=== PATIENT | female | born 1995 | race Hispanic/Latino ===

== ENCOUNTER 2022-07-09 16:13 | Emergency (ER) | payer OTHER ==
--- OUTSIDE RECORDS SUMMARY | 2022-07-09 16:20 | XMS REPORT | Continuity of Care Document ---
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 depressed, nightly moderate for mood prazosin 2021-03- No PTSD 1mg Take 1 Spencer (MINIPRESS) 04-08 (post-traum capsule by [facility] 1 mg 00:00: 00:00 atic stress mouth at capsule 00 :00 disorder) bedtime nightly for trauma nightmares hydrOXYzine 2021-03- No PTSD 50mg Take 1 Marquez ris (ATARAX) 50 04-08 (post-traum tablet by [facility] mg tablet 00:00: 00:00 atic stress mouth 3 00 :00 disorder) times daily as needed for Anxiety sertraline 2021-03- No Bipolar I 200mg Take 2 [facility] (ZOLOFT) 04-08 disorder, tablets by [facility] 100 mg 00:00: 00:00 most recent mouth tablet 00 :00 episode every depressed, morning moderate for depression and anxiety QUEtiapine 2021-03 No Bipolar I 100mg Take 1 [facility] (SEROQUEL) 04-08 disorder, tablet by [facility] 100 mg 00:00: 00:00 most recent mouth at tablet 00 :00 episode bedtime depressed, nightly moderate for mood prazosin 2021-03 No PTSD 1mg Take 1 Spencer (MINIPRESS) 04-08 (post-traum capsule by [facility] 1 mg 00:00: 00:00 atic stress mouth at capsule 00 :00 disorder) bedtime nightly for trauma nightmares hydrOXYzine 2021-03 PTSD 50mg Take 1 Marquez ris (ATARAX) 50 04-08 (post-traum tablet by [facility] mg tablet 00:00: 00:00 atic stress mouth 3 00 :00 disorder) times daily as needed for Anxiety sertraline 2021-03 Bipolar I 200mg Take 2 [facility] (ZOLOFT) 04-08 disorder, tablets by [facility] 100 mg 00:00: 00:00 most recent mouth tablet 00 :00 episode every depressed, morning moderate for depression and anxiety QUEtiapine 2021-03 No Bipolar I 100mg Take 1 [facility] (SEROQUEL) 04-08 disorder, tablet by [facility] 100 mg 00:00: 00:00 most recent mouth at tablet 00 :00 episode bedtime depressed, nightly moderate for mood prazosin 2021-03 PTSD 1mg Take 1 Spencer (MINIPRESS) 04-08 (post-traum capsule by [facility] 1 mg 00:00: 00:00 atic stress mouth at capsule 00 :00 disorder) bedtime nightly for trauma nightmares prazosin 2021-03- No 1mg Take 1 mg Marquez ris (MINIPRESS) 03-20 by mouth [facility] 1 mg 00:00: 00:00 at bedtime capsule 00 :00 nightly QUEtiapine 2021-03 No 100mg Take 100 H arris (SEROQUEL) 03-20 mg by [facility] 100 mg 00:00: 00:00 mouth at tablet 00 :00 bedtime nightly sertraline 2021-03- No 50mg Q.5D Take 50 mg Spencer (ZOLOFT) 50 03-20 by mouth 2 [facility] mg tablet 00:00: 00:00 (two) 00 :00 times a day prazosin 2021-03- No 1mg Take 1 mg Marquez ris (MINIPRESS) 03-20 by mouth [facility] 1 mg 00:00: 00:00 at bedtime capsule 00 :00 nightly QUEtiapine 2021-03- No 100mg Take 100 H arris (SEROQUEL) 03-20 mg by [facility] 100 mg 00:00: 00:00 mouth at tablet 00 :00 bedtime nightly sertraline 2021-03- No 50mg Q.5D Take 50 mg [facility] (ZOLOFT) 50 03-20 by mouth 2 [facility] mg tablet 00:00: 00:00 (two) 00 :00 times a day prazosin 2021-03- No 1mg Take 1 mg Marquez ris (MINIPRESS) 03-20 by mouth [facility] 1 mg 00:00: 00:00 at bedtime capsule 00 :00 nightly QUEtiapine 2021-03- No 100mg Take 100 H arris (SEROQUEL) 03-20 mg by [facility] 100 mg 00:00: 00:00 mouth at tablet 00 :00 bedtime nightly sertraline 2021-03- No 50mg Q.5D Take 50 mg [facility] (ZOLOFT) 50 03-20 by mouth 2 [facility] mg tablet 00:00: 00:00 (two) 00 :00 times a day sertraline 2021-03- No 150mg QD Take 150 H arris HCl (ZOLOFT -04 11-04 mg by Health OR) 00:25: 00:00 mouth 38 :00 daily sertraline 2021-03- No 150mg QD Take 150 H arris HCl (ZOLOFT -04 11-04 mg by Health OR) 00:25: 00:00 mouth 38 :00 daily gabapentin 2021- No Depression, 300mg Take 1 Spencer (NEURONTIN) 09-16 controlled capsule by [employer] 300 mg 00:00: 23:59 mouth 3 capsule 00 :00 times daily for 30 days traZODone 2021-2021- No Depression, 100mg Take 1 Spencer (DESYREL) 09-16 controlled tablet by [employer] 100 mg 00:00: 23:59 mouth at tablet 00 :00 bedtime nightly for 30 days sertraline 2021-2021- No Moderate 100mg QD Take 1 Spencer (ZOLOFT) 09-16 episode of tablet by [employer] 100 mg 00:00: 23:59 recurrent mouth tablet 00 :00 major daily for depressive 30 days disorder hydrOXYzine 2021-2021- No Moderate 25mg Take 1 Spencer (ATARAX) 25 09-16 episode of tablet by [facility] mg tablet 00:00: 23:59 recurrent mouth 3 00 :00 major times depressive daily as disorder needed for up to 30 days for Anxiety gabapentin 2021-2021- No Depression, 300mg Take 1 Spencer (NEURONTIN) 09-16 controlled capsule by [employer] 300 mg 00:00: 23:59 mouth 3 capsule 00 :00 times daily for 30 days traZODone 2021-2021- No Depression, 100mg Take 1 Spencer (DESYREL) 09-16 controlled tablet by [employer] 100 mg 00:00: 23:59 mouth at tablet 00 :00 bedtime nightly for 30 days sertraline 2021-2021- No Moderate 100mg QD Take 1 Spencer (ZOLOFT) 09-16 episode of tablet by [employer] 100 mg 00:00: 23:59 recurrent mouth tablet 00 :00 major daily for depressive 30 days disorder hydrOXYzine 2021-2021- No Moderate 25mg Take 1 [facility] (ATARAX) 25 09-16 episode of tablet by [facility] mg tablet 00:00: 23:59 recurrent mouth 3 00 :00 major times depressive daily as disorder needed for up to 30 days for Anxiety gabapentin 2021-2021- No Depression, 300mg Take 1 Spencer (NEURONTIN) 09-16 controlled capsule by [employer] 300 mg 00:00: 23:59 mouth 3 capsule 00 :00 times daily for 30 days traZODone 2021-0 2021- No Depression, 100mg Take 1 [facility] (DESYREL) 09-16 controlled tablet by [facility] 100 mg 00:00: 23:59 mouth at tablet 00 :00 bedtime nightly for 30 days sertraline 2021- No Moderate 100mg QD Take 1 Spencer (ZOLOFT) 09-16 episode of tablet by [facility] 100 mg 00:00: 23:59 recurrent mouth tablet 00 :00 major daily for depressive 30 days disorder hydrOXYzine 2021- No Moderate 25mg Take 1 Spencer (ATARAX) 25 09-16 episode of tablet by [facility] mg tablet 00:00: 23:59 recurrent mouth 3 00 :00 major times depressive daily as disorder needed for up to 30 days for Anxiety gabapentin 2021- No Depression, 300mg Take 1 Spencer (NEURONTIN) 09-16 controlled capsule by [facility] 300 mg 00:00: 23:59 mouth 3 capsule 00 :00 times daily for 30 days traZODone 2021- No Depression, 100mg Take 1 Spencer (DESYREL) 09-16 controlled tablet by [facility] 100 mg 00:00: 23:59 mouth at tablet 00 :00 bedtime nightly for 30 days sertraline 2021-2021- No Moderate 100mg QD Take 1 Spencer (ZOLOFT) 09-16 episode of tablet by [facility] 100 mg 00:00: 23:59 recurrent mouth tablet 00 :00 major daily for depressive 30 days disorder hydrOXYzine 2021- No Moderate 25mg Take 1 Spencer (ATARAX) 25 09-16 episode of tablet by [facility] mg tablet 00:00: 23:59 recurrent mouth 3 00 :00 major times depressive daily as disorder needed for up to 30 days for Anxiety NS (Bolus) No 1,000 mL, Me moria IV 5-18 1,000 l 05:31: ml/hr, Gavin 00 Infuse Over: 1 hr, Route: IV, 1,000, Drug form: INJ, ONCE, Priority: STAT, Dosing Weight 40 kg, Start date: 07/27/21 0:31:00 CDT, Stop date: 07/27/21 0:31:00 CDT, 0 NS (Bolus) No 1,000 mL, Me moria IV 5-18 1,000 l 05:31: ml/hr, [facility] 00 Infuse Over: 1 hr, Route: IV, 1,000, Drug form: INJ, ONCE, Priority: STAT, Dosing Weight 40 kg, Start date: 07/27/21 0:31:00 CDT, Stop date: 07/27/21 0:31:00 CDT, 0 NS (Bolus) No 1,000 mL, Me moria IV 5-18 1,000 l 05:31: ml/hr, [place] 00 Infuse Over: 1 hr, Route: IV, 1,000, Drug form: INJ, ONCE, Priority: STAT, Dosing Weight 40 kg, Start date: 07/27/21 0:31:00 CDT, Stop date: 07/27/21 0:31:00 CDT, 0 NS (Bolus) No 1,000 mL, Me moria IV 5-18 1,000 l 05:31: ml/hr, [place] 00 Infuse Over: 1 hr, Route: IV, 1,000, Drug form: INJ, ONCE, Priority: STAT, Dosing Weight 40 kg, Start date: 07/27/21 0:31:00 CDT, Stop date: 07/27/21 0:31:00 CDT, 0 NS (Bolus) No 1,000 mL, Me moria IV 5-18 1,000 l 05:31: ml/hr, [facility] 00 Infuse Over: 1 hr, Route: IV, 1,000, Drug form: INJ, ONCE, Priority: STAT, Dosing Weight 40 kg, Start date: 07/27/21 0:31:00 CDT, Stop date: 07/27/21 0:31:00 CDT, 0 ibuprofen Yes 800 mg = 1 Me moria 800 mg oral 4-07 tab, PO, l tablet 00:51: Q8H, PRN [place] 00 Pain, Take with food, X 7 day, # 20 tab, 0 Refill(s) Tylenol Yes 1,000 mg = Fili brandy Extra 4-07 2 tab, PO, l Strength 00:51: Q6H, PRN Fabiola nn 500 mg oral 00 Pain, not tablet to exceed 4000 mg/day, X 10 day, # 80 tab, 0 Refill(s) ibuprofen 0 Yes 800 mg = 1 Me moria 800 mg oral 4-07 tab, PO, l tablet 00:51: Q8H, PRN [place] 00 Pain, Take with food, X 7 day, # 20 tab, 0 Refill(s) Tylenol 0 Yes 1,000 mg = Fili brandy Extra 4-07 2 tab, PO, l Strength 00:51: Q6H, PRN Fabiola nn 500 mg oral 00 Pain, not tablet to exceed 4000 mg/day, X 10 day, # 80 tab, 0 Refill(s) ibuprofen 0 Yes 800 mg = 1 Me moria 800 mg oral 4-07 tab, PO, l tablet 00:51: Q8H, PRN [place] 00 Pain, Take with food, X 7 day, # 20 tab, 0 Refill(s) Tylenol 0 Yes 1,000 mg = Fili brandy Extra 4-07 2 tab, PO, l Strength 00:51: Q6H, PRN Fabiola nn 500 mg oral 00 Pain, not tablet to exceed 4000 mg/day, X 10 day, # 80 tab, 0 Refill(s) ibuprofen 0 Yes 800 mg = 1 Me moria 800 mg oral 4-07 tab, PO, l tablet 00:51: Q8H, PRN [place] 00 Pain, Take with food, X 7 day, # 20 tab, 0 Refill(s) Tylenol 0 Yes 1,000 mg = Fili brandy Extra 4-07 2 tab, PO, l Strength 00:51: Q6H, PRN [place] nn 500 mg oral 00 Pain, not tablet to exceed 4000 mg/day, X 10 day, # 80 tab, 0 Refill(s) ibuprofen 0 Yes 800 mg = 1 Me moria 800 mg oral 4-07 tab, PO, l tablet 00:51: Q8H, PRN [place] 00 Pain, Take with food, X 7 day, # 20 tab, 0 Refill(s) Tylenol 2021-0 Yes 1,000 mg = Fili brandy Extra 4-07 2 tab, PO, l Strength 00:51: Q6H, PRN [place] nn 500 mg oral 00 Pain, not tablet to exceed 4000 mg/day, X 10 day, # 80 tab, 0 Refill(s) gabapentin 2021- No Depression, 300mg Take 1 Spencer (NEURONTIN) 11-05 controlled capsule by [facility] 300 mg 00:00: 00:00 mouth 3 capsule 00 :00 times daily. sertraline 2021- No Depression, 50mg QD Take 1 Spencer (ZOLOFT) 50 11-05 controlled tablet by [facility] mg tablet 00:00: 00:00 mouth 00 :00 daily. traZODone 2021- No Depression, 100mg Take 1 [facility] (DESYREL) 11-05 controlled tablet by [facility] 100 mg 00:00: 00:00 mouth at tablet 00 :00 bedtime nightly. gabapentin 2021- No Depression, 300mg Take 1 [facility] (NEURONTIN) 11-05 controlled capsule by [facility] 300 mg 00:00: 00:00 mouth 3 capsule 00 :00 times daily. sertraline 2021- No Depression, 50mg QD Take 1 Spencer (ZOLOFT) 50 11-05 controlled tablet by [facility] mg tablet 00:00: 00:00 mouth 00 :00 daily. traZODone 2021- No Depression, 100mg Take 1 Spencer (DESYREL) 11-05 controlled tablet by [facility] 100 mg 00:00: 00:00 mouth at tablet 00 :00 bedtime nightly. gabapentin 2021- No Depression, 300mg Take 1 Spencer (NEURONTIN) 11-05 controlled capsule by [facility] 300 mg 00:00: 00:00 mouth 3 capsule 00 :00 times daily. sertraline 2021- No Depression, 50mg QD Take 1 Spencer (ZOLOFT) 50 11-05 controlled tablet by [facility] mg tablet 00:00: 00:00 mouth 00 :00 daily. traZODone 2021- No Depression, 100mg Take 1 Spencer (DESYREL) 11-05 controlled tablet by [employer] 100 mg 00:00: 00:00 mouth at tablet 00 :00 bedtime nightly. gabapentin 2021- No Depression, 300mg Take 1 Spencer (NEURONTIN) 11-05 controlled capsule by [facility] 300 mg 00:00: 00:00 mouth 3 capsule 00 :00 times daily. sertraline 2021- No Depression, 50mg QD Take 1 Spencer (ZOLOFT) 50 11-05 controlled tablet by [employer] mg tablet 00:00: 00:00 mouth 00 :00 daily. traZODone 2021- No Depression, 100mg Take 1 Spencer (DESYREL) 11-05 controlled tablet by [employer] 100 mg 00:00: 00:00 mouth at tablet 00 :00 bedtime nightly. Mupirocin Yes 1 appl, [facility] 0.02 MG/MG 6-28 TOP, BID, l Topical 19:35: Apply to Evaristo n Ointment 00 affected [Bactroban] area(s), X 7 day, # 22 gm, 0 Refill(s) Mupirocin 0 Yes 1 appl, Memor ia 0.02 MG/MG 6-28 TOP, BID, l Topical 19:35: Apply to Evaristo n Ointment 00 affected [Bactroban] area(s), X 7 day, # 22 gm, 0 Refill(s) Mupirocin 0 Yes 1 appl, Memor ia 0.02 MG/MG 6-28 TOP, BID, l Topical 19:35: Apply to Evaristo n Ointment 00 affected [Bactroban] area(s), X 7 day, # 22 gm, 0 Refill(s) Mupirocin Yes 1 appl, Memor ia 0.02 MG/MG 6-28 TOP, BID, l Topical 19:35: Apply to Evaristo n Ointment 00 affected [Bactroban] area(s), X 7 day, # 22 gm, 0 Refill(s) Mupirocin 0 Yes 1 appl, Memor ia 0.02 MG/MG 6-28 TOP, BID, l Topical 19:35: Apply to Evaristo n Ointment 00 affected [Bactroban] area(s), X 7 day, # 22 gm, 0 Refill(s) Immunizations Ordered Immunization Filled Immunization Date Status Commen ts Source Name Name AGE 8 MOS+ INFLUENZA 2022-03-17 Completed [facility] VACCINE <AFLURIA, 00:00:00 FLUZONE, FLULAVAL, FLUARIX> PREFILLED SYRINGE, QUADD AGE 8 MOS+ INFLUENZA 2022-03-17 Completed [facility] VACCINE <AFLURIA, 00:00:00 FLUZONE, FLULAVAL, FLUARIX> PREFILLED SYRINGE, QUADD AGE 8 MOS+ INFLUENZA 2022-03-17 Completed [facility] VACCINE <AFLURIA, 00:00:00 FLUZONE, FLULAVAL, FLUARIX> PREFILLED SYRINGE, QUADD Vital Signs Vital Name Observation Time Observation Value Comments Source Systolic blood 2022-05-25 22:51:00 103 mm[Hg] [facility] pressure Diastolic blood 2022-05-25 22:51:00 72 mm[Hg] [facility] pressure Heart rate 2022-05-25 22:51:00 97 /min [facility] Body temperature 2022-05-25 22:51:00 36.89 [facility] Respiratory rate 2022-05-25 22:51:00 18 /min [facility] Oxygen saturation in 2022-05-25 22:51:00 100 /min [facility] Arterial blood by Pulse oximetry Body height 2022-05-25 14:43:00 157.5 cm [facility] Body weight 2022-05-25 14:43:00 50.1 kg [facility] BMI 2022-05-25 14:43:00 20.20 kg/m2 [facility] Body temperature 2022-03-17 11:59:00 36.28 [facility] Body temperature 2022-03-17 11:59:00 36.28 [facility] Body temperature 2022-03-17 11:59:00 36.28 [facility] Body temperature 2022-03-17 11:59:00 36.28 [facility] Systolic blood 2022-05-31 16:00:00 112 mm[Hg] [facility] pressure Diastolic blood 2022-05-31 16:00:00 77 mm[Hg] [facility] pressure Heart rate 2022-05-31 16:00:00 86 /min [facility] Body temperature 2022-05-31 16:00:00 37.67 [facility] Respiratory rate 2022-05-31 16:00:00 18 /min [facility] Oxygen saturation in 2022-05-31 16:00:00 100 /min [facility] Arterial blood by Pulse oximetry Body height 2022-05-26 02:47:00 157.5 cm [facility] Body weight 2022-05-26 02:47:00 52.073 kg [facility] BMI 2022-05-26 02:47:00 21.00 kg/m2 [facility] Body temperature 2022-03-17 11:59:00 36.28 [facility] Systolic blood 2022-03-14 10:31:00 117 mm[Hg] [facility] pressure Diastolic blood 2022-03-14 10:31:00 84 mm[Hg] [facility] pressure Heart rate 2022-03-14 10:31:00 82 /min [facility] Respiratory rate 2022-03-14 10:31:00 17 /min [facility] Body height 2022-03-14 10:31:00 157.5 cm [facility] Body weight 2022-03-14 10:31:00 55.792 kg [facility] BMI 2022-03-14 10:31:00 22.50 kg/m2 [facility] Oxygen saturation in 2022-02-06 09:02:00 99 /min [facility] Arterial blood by Pulse oximetry Systolic blood 2021-09-16 11:40:00 99 mm[Hg] [facility] pressure Diastolic blood 2021-09-16 11:40:00 62 mm[Hg] [facility] pressure Heart rate 2021-09-16 11:40:00 76 /min [facility] Body temperature 2021-09-16 11:40:00 36.28 [facility] Respiratory rate 2021-09-16 11:40:00 18 /min [facility] Body height 2021-09-16 11:40:00 157.5 cm [facility] Body weight 2021-09-16 11:40:00 58.514 kg [facility] BMI 2021-09-16 11:40:00 23.59 kg/m2 [facility] Oxygen saturation in 2021-09-16 11:40:00 99 /min [facility] Arterial blood by Pulse oximetry Systolic (mm Hg) 2021-07-27 06:18:00 Fili rial [place] Diastolic (mm Hg) 2021-07-27 06:18:00 Mem orial [place] Heart Rate 2021-07-27 06:13:00 [facility] Respitory Rate 2021-07-27 06:13:00 [facility] Systolic (mm Hg) 2021-07-27 06:13:00 Fili rial [place] Diastolic (mm Hg) 2021-07-27 06:13:00 Mem [facility] Temperature Oral (F) 2021-07-27 05:25:00 97.9 F [facility] [place] Heart Rate 2021-07-27 05:25:00 [facility] Respitory Rate 2021-07-27 05:25:00 Memori al [place] Systolic (mm Hg) 2021-07-27 05:25:00 Fili rial [facility] Diastolic (mm Hg) 2021-07-27 05:25:00 Mem orial [place] Respitory Rate 2021-07-27 03:10:00 Memori al [place] Weight 2021-07-27 02:52:00 [facility] [place] Heart Rate 2021-07-27 02:52:00 [facility] [place] Temperature Oral (F) 2021-07-27 02:52:00 98.5 F [facility] Temperature Oral (F) 2021-06-16 02:15:00 98.1 F [facility] Heart Rate 2021-06-16 02:15:00 [facility] [place] Respitory Rate 2021-06-16 02:15:00 Memori al [place] Systolic (mm Hg) 2021-06-16 02:15:00 Fili rial [place] Diastolic (mm Hg) 2021-06-16 02:15:00 Mem orial [place] Heart Rate 2021-06-15 22:57:00 [facility] [place] Respitory Rate 2021-06-15 22:57:00 Memori al [place] Systolic (mm Hg) 2021-06-15 22:57:00 Fili rial [place] Diastolic (mm Hg) 2021-06-15 22:57:00 Mem orial [place] Temperature Oral (F) 2021-06-15 22:45:00 99.5 F [facility] [place] Systolic (mm Hg) 2021-06-15 22:45:00 Fili rial [place] Diastolic (mm Hg) 2021-06-15 22:45:00 Mem orial [place] Heart Rate 2021-06-15 22:45:00 [facility] [place] Respitory Rate 2021-06-15 22:45:00 [facility] [place] Temperature Oral (F) 2020-09-06 19:55:00 98.1 F [facility] Heart Rate 2020-09-06 19:55:00 [facility] [place] Respitory Rate 2020-09-06 19:55:00 [facility] [place] Systolic (mm Hg) 2020-09-06 19:55:00 Fili rial [place] Diastolic (mm Hg) 2020-09-06 19:55:00 Mem orial [place] Systolic (mm Hg) 2020-09-06 17:24:00 Fili rial [place] Diastolic (mm Hg) 2020-09-06 17:24:00 Mem orial [place] Heart Rate 2020-09-06 17:24:00 [facility] [place] Respitory Rate 2020-09-06 17:24:00 Memori al [place] Temperature Oral (F) 2020-09-06 17:24:00 98.6 F [facility] [place] Procedures Procedure Date / Time Performed Performing Clinician Sourc e POC COVID-19 2022-05-26 02:00:00 [facility] 2022-05-25 21:09:00 Nelia Paul [facility] TEST 2022-05-25 21:09:00 Nelia Paul [facility]th URINALYSIS 2022-05-25 21:09:00 Nelia Paul [facility]th TEST 2022-05-25 21:09:00 Nelia Paul [facility]th URINALYSIS 2022-05-25 21:09:00 Nelia Paul [facility]th URINALYSIS 2022-05-25 21:09:00 Nelia Paul alth CBC/DIFF 2022-05-25 20:09:00 Nelia Paul alth BASIC METABOLIC PANEL 2022-05-25 20:09:00 Nelia Paul [facility] LIVER PROFILE 2022-05-25 20:09:00 Nelia Paul alth LIPASE 2022-05-25 20:09:00 Nelia Paul alth CBC 2022-05-25 20:09:00 Nelia Paul alth BASIC METABOLIC PANEL 2022-05-25 20:09:00 Nelia Paul [facility] CBC/DIFF 2022-05-25 20:09:00 Nelia Paul alth LIPASE 2022-05-25 20:09:00 Nelia Paul alth LIVER PROFILE 2022-05-25 20:09:00 Nelia Paul alth CBC 2022-05-25 20:09:00 Nelia Paul alth U/S ABDOMEN LIMITED 2022-05-25 18:48:15 Humberto Trini [facility] Health U/S ABDOMEN LIMITED 2022-05-25 18:48:15 Humberto Trini [facility] XRAY CHEST 2 VIEWS 2022-05-25 18:25:[address] [facility] XRAY CHEST 2 VIEWS 2022-05-25 18:25:[address] [facility] 12 LEAD EKG 2022-05-25 18:09:23 Nelia Paul alth 12 LEAD EKG 2022-05-25 18:09:23 Humberto Nelia Polk [facility] CBC WITH 2022-03-14 10:30[facility]PLATELET COMPREHENSIVE METABOLIC 2022-03-14 10:30:00 [facility] PANEL(14) HEMOGLOBIN A1C 2022-03-14 10:30:00 [facility] LIPID PANEL 2022-03-14 10:30:00 [facility] THYROID II PROFILE (TU, 2022-03-14 10:30:00 [facility] T4, T7, TSH) DRUG ABUSE SCREEN 11 2022-02-06 10:08:00 [facility] W/ETOH, NO CONF TEST, URINE 2022-02-06 10:08:00 [facility] POC COVID-19 2022-01-13 00:32:00 [facility] 2021-[facility]-15 00:00:00 [facility] DR[facility] S[facility]EN POC URINE 2021-03-15 00:00:[address] [facility] POC COVID-19 2021-03-14 00:00:00 Arnulfo Stanley [facility] Plan of Care Planned Activity Planned Date Details Comments Source Future Scheduled Test 2021-12-[address] [facility] 00:00:00 (>/= 19 yrs) [code = IMM Influenza Seasonal (>/= 19 yrs)] Future Scheduled Test [address] [facility] 00:00:00 neoplasm of cervix (procedure) [code = 269441871] Future Scheduled Test [address] [facility] 00:00:00 neoplasm of cervix (procedure) [code = 541748763] Future Scheduled Test [address] [facility] 00:00:00 neoplasm of cervix (procedure) [code = 898918679] Future Scheduled Test [address] [facility] 00:00:00 neoplasm of cervix (procedure) [code = 212745788] Future Scheduled Test 2003 Imm Pneumococcal 0-64 [facility] 00:00:00 (1 - PCV) [code = Imm Pneumococcal 0-64 (1 - PCV)] Future Scheduled Test [address]neum[address] 0-64 [facility] 00:00:00 (1 - PCV) [code = Imm Pneumococcal 0-64 (1 - PCV)] Future Scheduled Test [address]neumococcal 0-64 [facility] 00:00:00 (1 - PCV) [code = Imm Pneumococcal 0-64 (1 - PCV)] Future Scheduled Test [address]neum[address] 0-64 [facility] 00:00:00 (1 - PCV) [code = Imm Pneumococcal 0-64 (1 - PCV)] Future Scheduled Test 1997 COVID-19 Vaccine (#1) [facility] 00:00:00 [code = COVID-19 Vaccine (#1)] Future Scheduled Test 1997 COVID-19 Vaccine (#1) [facility] 00:00:00 [code = COVID-19 Vaccine (#1)] Future Scheduled Test 1997 COVID-19 Vaccine (#1) [facility] 00:00:00 [code = COVID-19 Vaccine (#1)] Future Scheduled Test 1997 COVID-19 Vaccine (#1) [facility] 00:00:00 [code = COVID-19 Vaccine (#1)] Future Scheduled Test 1997 Fluoride Varnish [code [facility] 00:00:00 = Fluoride Varnish] Encounters Start End Encounter Admission Attending Care Care Encounter Source Date/Time Date/Time Type Type Clinicians Facility Department ID 2022-05-25 Outpatient [facility] [id number] [place] 17:56:57 [id number] [facility] 2021-09-20 Outpatient [facility] [id number] [place] 08:13:09 [id number] [facility] 2021-06-17 Outpatient [facility] [id number] [place] 13:07:55 [id number] [facility] 2022-06-28 2022-06-28 Outpatient [facility] SFA Johnathan 09:46:40 09:46:40 [id number] [place] 2022-06-02 2022-06-02 Outpatient S[facility] Johnathan 11:00:12 11:00:12 [id number] F [place] 2022-05-25 2022-05-26 Inpatient [facility] [id number] [place] 13:53:00 09:23:00 [facility] 2022-05-25 2022-05-26 Emergency FERNANDO Paul [id number] [place] 15:49:00 00:36:00 Nelia MARROQUIN [id number] [facility] .[id number] 9787-03-16 2022-05-25 Emergency [facility] [id number] [place] 18:24:23 18:48:17 [facility] 2022-05-25 2022-05-25 Emergency [facility] [id number] [place] 18:14:52 18:25:25 [facility] 2022-03-17 2022-03-17 Office SEAMUS Hogan [id number] [facility] T[place] 11:15:00 12:13:31 Visit Juany MUÑOZ [id number] Oleksandr [facility] .2.7.2.6869 - [id number] [facility] 2022-03-17 2022-03-17 Office SEAMUS Hogan [id number] [place] 11:15:00 12:13:31 Visit Juany MUÑOZ 350.1.13.43 tabby INGALLS .2.7.2.6869 - [id number] [facility] 4 2022-01-13 2022-01-19 [facility]patient [facility] [id number] [place] 11:00:00 13:00:00 [facility] 2022-01-12 2022-01-12 Outpatient NICHOLAS, [facility] [id number] [place] 20:27:59 23:59:00 DORETHA mcnair 2021-09-16 2021-09-16 Outpatient MAK, [facility] [id number] [place] 10:30:22 23:59:00 [facility] 2021-07-27 2021-07-27 [facility] [id number] Mem[facility] 02:42:18 06:47:00 r Gavin 03 [facility] 2021-07-27 2021-07-27 Emergency nullFlavo [facility] [id number] [id number] [place] 02:42:18 06:47:00 r Gavin 03 [facility] 2021-07-26 2021-07-27 Outpatient Fouche, [facility] [id number] 21:42:18 01:47:00 Alejandra Tracey [facility] 2021-07-26 2021-07-27 Outpatient Fouche, [facility] [id number] 21:42:18 01:47:00 Alejandra Tracey [facility] 2021-07-26 2021-07-27 Emergency E FOUCHE, [facility] [id number] [facility] 21:42:00 01:47:00 ALEJANDRA 2021-06-15 2021-06-16 Emergency nullFlavo [facility] [id number] [id number] [place] 22:28:00 02:18:00 r Gavin 02 [facility] 2021-06-15 2021-06-16 Emergency nullFlavo [facility] [id number] [id number] [place] 22:28:00 02:18:00 r Gavin 02 [facility] 2021-06-15 2021-06-15 Emergency E NDUM, [facility] [id number] [facility] 17:28:00 21:18:00 XAVI 2021-06-15 2021-06-15 Outpatient Ndum, [facility] [id number] 17:28:00 21:18:00 Xavi 02 Nathanael 2021-03-15 2021-03-23 Inpatient ABID, [facility] [id number] [place] 08:08:00 13:00:00 RADHA [facility] 2021-03-14 2021-03-14 Outpatient LISA, [facility] [id number] [place] 22:45:23 23:59:00 LUTHER [facility] 2021-01-01 2021-01-01 Orders Dioni, [facility] [id number] [place] 00:00:00 00:00:00 [facility] 2020-12-02 2020-12-02 Out[facility] SMALLS[facility] [id number] [place] 00:00:00 [facility]00[facility] 2020-11-11 2020-11-11 [facility] [id number] [place] 00:00:00 00:00:00 [facility] 2020-11-05 2020-11-06 [facility] [id number] [place] 21:24:00 01:26:00 [facility] 2020-11-05 2020-11-05 Outpatient KOLBY JUDD [facility] [id number] [place] 18:48:02 21:23:00 [facility] 2020-09-06 2020-09-06 [facility] [id number] [place] 17:07:27 19:58:00 r Gavin [address] [place] [address] 2020-09-06 2020-09-06 Emergency nullFlavo [facility] [id number] [place] 17:07:27 19:58:00 r Gavin 01 [facility] 2020-09-06 2020-09-06 Outpatient Hilton Lima [facility] [id number] 12:07:27 14:58:00 Sumanth 01 Results Test Description Test Time Test Comments Results Result Sourc e Comments 12 Lead EKG 2022-05-10 12 LEAD EKG FOR CHP Fernando [place] 6 [facility] 18:09:23 Test Date: [id number] Name: NANETTE KIRBY Department: 5520Patient ID: [id number] Room: [place] [address]Gender: F Dye Mixer: [id number]: 1995 Requested By: NELIA Dow Number: [id number] Reading MD: Lo Hernández MeasurementsIntervals [place] Rate: 72 P: 68PR: 128 QRS: 72QRSD: 83 T: 65QT: 381 QTc: 405 Interpretive StatementsSINUS RHYTHMElectronically Signed On 05-26-2022 12:18:12 CDT by Lo Sanchez 12 Lead EKG 2022-05-10 12 LEAD EKG FOR CHP Fernando [place] 6 [facility] 18:09:23 Test Date: [id number] Name: NANETTE KIRBY Department: 5520Patient ID: [id number] Room: [place] [address]Gender: F Dye Mixer: [id number]: 1995 Requested By: NELIA Dow Number: [id number] Reading MD: Lo Hernández MeasurementsIntervals [place] Rate: 72 P: 68PR: 128 QRS: 72QRSD: 83 T: 65QT: 381 QTc: 405 Interpretive StatementsSINUS RHYTHMElectronically Signed On 05-26-2022 12:18:12 CDT by Lo Sanchez CHEM PANEL 2021-07-27 04:05:00 Test Item Value Reference Range Interpretation Comme nts A/G Ratio (test code = A/G Ratio) 0.8 1 0.7-1.6 Cash4GoldCHEM [id number] 04:05:00 Test Item Value Reference Range Interpretation Comments eGFR (test code = eGFR) 122 [facility] MiSiedoannDRUG [id number] 04:05:00 Test Item Value Reference Range Interpretation Comments U Amph Scr (test code Positive *ABN*(07/26/21 = U Amph Scr) 11:05 PM) [facility] MiSiedoannDRUG [id number] 04:05:00 Test Item Value Reference Range Interpretation Comments U Katie Scr (test code Negative *NA*(07/26/21 = U Katie Scr) 11:05 PM) [facility] MiSiedoannDRUG [id number] 04:05:00 Test Item Value Reference Range Interpretation Comments U Benzodiaz Scr (test Positive *ABN*(07/26/21 code = U Benzodiaz Scr) 11:05 PM) [facility] MiSiedoannDRUG [id number] 04:05:00 Test Item Value Reference Range Interpretation Comments U Cocaine Scr (test Positive *ABN*(07/26/21 code = U Cocaine Scr) 11:05 PM) [facility] [id number] 04:05:00 Test Item Value Reference Range Interpretation Comments U Cannab Scr (test Positive *ABN*(07/26/21 code = U Cannab Scr) 11:05 PM) [facility] [id number] 04:05:00 Test Item Value Reference Range Interpretation Comments U Opiate Scr (test Negative *NA*(07/26/21 code = U Opiate Scr) 11:05 PM) [facility] [id number] 04:05:00 Test Item Value Reference Range Interpretation Comments U Phencyclidine Scr (test Negative code = U Phencyclidine *NA*(07/26/21 11:05 Scr) PM) [facility] [id number] 04:05:00 Test Item Value Reference Range Interpretation Comments BUN (test code = BUN) 09-30 [facility]ann[facility] [id number] 04:05:00 Test Item Value Reference Range Interpretation Comments UDS Note (test code = See Note (07/26/21 11:05 UDS Note) PM) [facility] CenterXbkgbqmCCDDWPWBQGTRO1878-91-02 04:05:00 Test Item Value Reference Range Interpretation Comments S Preg (test code = S Negative *NA*(07/26/21 Preg) 11:05 PM) [facility] ZwepwqaTOCBCZDIVG0104-20-93 04:05:00 Test Item Value Reference Range Interpretation Comments WBC (test code = WBC) 15.9 3.7-10.4 [facility] GuyrwshCAMZKXHRLQ6407-35-84 04:05:00 Test Item Value Reference Range Interpretation Comments RBC (test code = RBC) 4.06 4.20-5.40 [facility] FmvukfsUQLTHZLDZE4622-36-98 04:05:00 Test Item Value Reference Range Interpretation Comments Hgb (test code = Hgb) 12.1 12.0-16.0 [facility] UiwgfpdVZHDYXZRJQ6964-41-83 04:05:00 Test Item Value Reference Range Interpretation Comments Hct (test code = Hct) 35.3 36.0-48.0 [facility] IcbvfosGTSTPGBXUZ6988-96-13 04:05:00 Test Item Value Reference Range Interpretation Comments MCV (test code = MCV) 86.9 80.0-98.0 [facility] SpringsNvbnesuBCYXYQDJVH9719-91-26 04:05:00 Test Item Value Reference Range Interpretation Comments MCH (test code = MCH) 29.7 pg 27.0-31.0 [facility] SpringsTxwljjtEBFQCAXQRV0787-81-27 04:05:00 Test Item Value Reference Range Interpretation Comments MCHC (test code = MCHC) 34.2 32.0-36.0 [facility] SpringsKninhjiUDYTVXROFM4518-95-67 04:05:00 Test Item Value Reference Range Interpretation Comments RDW (test code = RDW) 14.9 11.5-14.5 [facility]2022-05-18 04:05:00 Test Item Value Reference Range Interpretation Comments Creatinine Lvl (test code = Creatinine 0.70 0.50-1.40 Lvl) [facility] SpringsDxlrkpmVZVYTUBQZZ3630-71-55 04:05:00 Test Item Value Reference Range Interpretation Comments Platelet (test code = Platelet) 313 133-450 [facility] SpringsAkrtapvTGUAZZBPFL4972-38-30 04:05:00 Test Item Value Reference Range Interpretation Comments MPV (test code = MPV) 8.8 7.4-10.4 [facility] SpringsFgxhlklSWCGLGLFEX1828-08-13 04:05:00 Test Item Value Reference Range Interpretation Comments Segs (test code = Segs) 74.5 45.0-75.0 [facility] SpringsXlwxjnyIONPAGJAVW6198-58-14 04:05:00 Test Item Value Reference Range Interpretation Comments Lymphocytes (test code = Lymphocytes) 13.5 20.0-40.0 [facility] SpringsYhzqnwrZDMWNCYBQE7104-44-96 04:05:00 Test Item Value Reference Range Interpretation Comments Monocytes (test code = Monocytes) 11.1 2.0-12.0 [place] [address]-05-18 04:05:00 Test Item Value Reference Range Interpretation Comments Eosinophils (test code = 0.4 See_Comment [A utomated message] The Eosinophils) system which ge nerated this result tra nsmitted reference range : <=4.0. The reference r hui was not used to int erpret this result as normal/abnormal . [facility] SpringsVdnyaspMFQZFGXSSL8818-21-25 04:05:00 Test Item Value Reference Range Interpretation Comments Basophils (test code = 0.5 See_Comment [Aut omated message] The Basophils) system which ge nerated this result tra nsmitted reference range : <=1.0. The reference r hui was not used to int erpret this result as normal/abnormal . [facility] SpringsKdzinipQSZQVGATNQ3571-17-44 04:05:00 Test Item Value Reference Range Interpretation Comments Neutrophils # (test code = Neutrophils 11.8 1.5-8.1 #) [facility] SpringsPgkddcvUVLDDZYNGB9862-98-13 04:05:00 Test Item Value Reference Range Interpretation Comments Lymphocytes # (test code = Lymphocytes 2.2 1.0-5.5 #) [facility] SpringsHscvcjvQOXAFSCYJK2662-92-97 04:05:00 Test Item Value Reference Range Interpretation Comments Monocytes # (test code 1.8 See_Comment [Aut omated message] The = Monocytes #) system which generated this result tra nsmitted reference range : <=0.8. The reference r hui was not used to int erpret this result as normal/abnormal . [facility]CHE[facility] [id number] 04:05:00 Test Item Value Reference Range Interpretation Comments Sodium Lvl (test code = Sodium Lvl) 139 135-145 [facility] SpringsSgiqjptULVUEJCOZR3836-82-92 04:05:00 Test Item Value Reference Range Interpretation Comments Eosinophils # (test code 0.1 See_Comment [A utomated message] The = Eosinophils #) system whic h generated this result tra nsmitted reference range : <=0.5. The reference r hui was not used to int erpret this result as normal/abnormal . [facility] SpringsAoxsuutXYNKPPTHFX9232-95-43 04:05:00 Test Item Value Reference Range Interpretation Comments Basophils # (test code 0.1 See_Comment [Aut omated message] The = Basophils #) system which generated this result tra nsmitted reference range : <=0.2. The reference r hui was not used to int erpret this result as normal/abnormal . [facility] CenterQdhxcadXXQQSOUOVN3449-52-74 04:05:00 Test Item Value Reference Range Interpretation Comments Coronavirus (COVID-19) Not Detected (07/26/21 DILSHAD (test code = 11:05 PM) Coronavirus (COVID-19) DILSHAD) [facility] CenterIkmphnaTATMKBFMMM8032-52-51 04:05:00 Test Item Value Reference Range Interpretation Comments Acetaminoph Lvl (test code (07/26/21 11:05 PM) 10-20 = Acetaminoph Lvl) [facility] CenterKuadlzhYJHWKNDMCY2342-50-08 04:05:00 Test Item Value Reference Range Interpretation Comments Ethanol Lvl (test code = Ethanol <3.0 mg/dL Lvl) [facility] CenterBshkrkwUFOWFMFAZL5646-30-04 04:05:00 Test Item Value Reference Range Interpretation Comments Etoh (%) (test code = Etoh (%)) <0.003 % [facility] CenterUhibdgaRORRPXORUR4945-94-22 04:05:00 Test Item Value Reference Range Interpretation Comments Salicylate Lvl (test no gt See_Comment [Autom ated message] The code = Salicylate Lvl) syste m which generated this result tra nsmitted reference range : <=30.0. The reference r hui was not used to int erpret this result as normal/abnormal . [facility] Dr [employer] [id number] 04:05:00 Test Item Value Reference Range Interpretation Comments Potassium Lvl (test code = Potassium 3.6 3.5-5.1 Lvl) [facility] CenterweeSpringCARDIAC PAFHGTH2754-74-24 04:05:00 Test Item Value Reference Range Interpretation Comments Total CK (test code = Total CK) 476 12-[address] [facility] [address] [employer] [id number] 04:05:00 Test Item Value Reference Range Interpretation Comments Glucose Lvl (test code = Glucose Lvl) 88 70-[address] [facility] [address] [employer] [id number] 04:05:00 Test Item Value Reference Range Interpretation Comments BUN (test code = BUN) 17 7-[address] [facility] [address] [employer] [id number] 04:05:00 Test Item Value Reference Range Interpretation Comments Creatinine Lvl (test code = Creatinine 0.70 0.50-1.40 Lvl) [facility] [employer] [id number] 04:05:00 Test Item Value Reference Range Interpretation Comments Sodium Lvl (test code = Sodium Lvl) 139 135-[address] [facility] [address] [employer] [id number] 04:05:00 Test Item Value Reference Range Interpretation Comments Potassium Lvl (test code = Potassium 3.6 3.5-5.1 Lvl) [facility] Dr [employer] [id number] 04:05:00 Test Item Value Reference Range Interpretation Comments Chloride Lvl (test code = Chloride Lvl) 106 95-109 [facility] CenterweeSpringNOVANT [facility] ORTHOPED[facility] HOSPITALCGSUI8802-93-74 04:05:00 Test Item Value Reference Range Interpretation Comments CO2 (test code = CO2) 27 24-32 [facility] CenterweeSpringKRISTEN [place] [address]38ZDELW2590-22-31 04:05:00 Test Item Value Reference Range Interpretation Comments Chloride Lvl (test code = Chloride Lvl) 106 95-109 [place] 182332-05-18 04:05:00 Test Item Value Reference Range Interpretation Comments Calcium Lvl (test code = Calcium Lvl) 8.1 8.5-10.5 [facility] CenterweeSpringKRISTEN [place] [address]LDJMY1813-55-66 04:05:00 Test Item Value Reference Range Interpretation Comments Total Protein (test code = Total 7.8 6.4-8.4 Protein) [facility] CenterweeSpringKRISTEN [place] [address]GETMX9677-17-18 04:05:00 Test Item Value Reference Range Interpretation Comments Albumin Lvl (test code = Albumin Lvl) 3.5 3.5-5.0 [facility] CenterVascular Pharmaceuticals [id number] 04:05:00 Test Item Value Reference Range Interpretation Comments ALT (test code = ALT) 25 See_Comment [Auto mated message] The system which ge nerated this result transmit haja reference range : <=65. The reference range was not used to interpr et this result as jazmin l/abnormal. [facility] CenterV[facility] Pharmaceuticals [id number] 04:05:00 Test Item Value Reference Range Interpretation Comments AST (test code = AST) 28 See_Comment [Auto mated message] The system which ge nerated this result transmit haja reference range : <=37. The reference range was not used to interpr et this result as jazmin l/abnormal. [facility] CenterV[facility] Pharmaceuticals [id number] 04:05:00 Test Item Value Reference Range Interpretation Comments Alk Phos (test code = Alk Phos) 78 39-136 [facility] Center[facility] [id number] 04:05:00 Test Item Value Reference Range Interpretation Comments Bili Total (test code = Bili Total) 0.6 0.2-1.3 [facility] Center[facility] [id number] 04:05:00 Test Item Value Reference Range Interpretation Comments AGAP (test code = AGAP) 9.6 10.0-20.0 [facility] Center[facility] [id number] 04:05:00 Test Item Value Reference Range Interpretation Comments B/C Ratio (test code = B/C Ratio) 24 1 6-25 [facility] MiSiedoannCHEM [id number] 04:05:00 Test Item Value Reference Range Interpretation Comments Globulin (test code = Globulin) 4.3 2.7-4.2 [facility] [id number] 04:05:00 Test Item Value Reference Range Interpretation Comments CO2 (test code = CO2) 27 24-32 [facility] CenterannCHEM [id number] 04:05:00 Test Item Value Reference Range Interpretation Comments A/G Ratio (test code = A/G Ratio) 0.8 1 0.7-1.6 [facility] MiSiedoannDanger [id number] 04:05:00 Test Item Value Reference Range Interpretation Comments eGFR (test code = eGFR) 122 [facility] CenterannDRUG [id number] 04:05:00 Test Item Value Reference Range Interpretation Comments U Amph Scr (test code Positive *ABN*(07/26/21 = U Amph Scr) 11:05 PM) [facility] CenterannDRUG [id number] 04:05:00 Test Item Value Reference Range Interpretation Comments U Katie Scr (test code Negative *NA*(07/26/21 = U Katie Scr) 11:05 PM) [facility] CenterannDRUG [id number] 04:05:00 Test Item Value Reference Range Interpretation Comments U Benzodiaz Scr (test Positive *ABN*(07/26/21 code = U Benzodiaz Scr) 11:05 PM) [facility] CenterannDRUG [id number] 04:05:00 Test Item Value Reference Range Interpretation Comments U Cocaine Scr (test Positive *ABN*(07/26/21 code = U Cocaine Scr) 11:05 PM) [facility] CenterannDR[facility] [id number] 04:05:00 Test Item Value Reference Range Interpretation Comments U Cannab Scr (test Positive *ABN*(07/26/21 code = U Cannab Scr) 11:05 PM) [facility] [id number] 04:05:00 Test Item Value Reference Range Interpretation Comments U Opiate Scr (test Negative *NA*(07/26/21 code = U Opiate Scr) 11:05 PM) [facility] CenterannDR[facility] [id number] 04:05:00 Test Item Value Reference Range Interpretation Comments U Phencyclidine Scr (test Negative code = U Phencyclidine *NA*(07/26/21 11:05 Scr) PM) [facility] CenterannDR[facility] [id number] 04:05:00 Test Item Value Reference Range Interpretation Comments UDS Note (test code = See Note (07/26/21 11:05 UDS Note) PM) [facility] CenterannCHEM [id number] 04:05:00 Test Item Value Reference Range Interpretation Comments Calcium Lvl (test code = Calcium Lvl) 8.1 8.5-10.5 [facility] HospitalTropjuvEGTZISFTNKVQF8454-50-75 04:05:00 Test Item Value Reference Range Interpretation Comments S Preg (test code = S Negative *NA*(07/26/21 Preg) 11:05 PM) [facility] CenterQocwtxjULOOMHDQBO5812-97-49 04:05:00 Test Item Value Reference Range Interpretation Comments WBC (test code = WBC) 15.9 3.7-10.4 [facility] CenterIsetaunJHIOWUNNZI0338-97-49 04:05:00 Test Item Value Reference Range Interpretation Comments RBC (test code = RBC) 4.06 4.20-5.40 [facility] CenterZfjwanxKBVAJJGJWW6795-19-61 04:05:00 Test Item Value Reference Range Interpretation Comments Hgb (test code = Hgb) 12.1 12.0-16.0 [facility] CenterDdtcuqmDSFCOZJCGJ7406-33-65 04:05:00 Test Item Value Reference Range Interpretation Comments Hct (test code = Hct) 35.3 36.0-48.0 [facility] CenterEhwoyjtVDKQTHLMPU1329-20-89 04:05:00 Test Item Value Reference Range Interpretation Comments MCV (test code = MCV) 86.9 80.0-98.0 [facility] CenterThjblqfJYXRUJBDRV0896-68-25 04:05:00 Test Item Value Reference Range Interpretation Comments MCH (test code = MCH) 29.7 pg 27.0-31.0 [facility] CenterNiqpgawAMXVZBRGGF7633-29-24 04:05:00 Test Item Value Reference Range Interpretation Comments MCHC (test code = MCHC) 34.2 32.0-36.0 [facility] CenterXzrqkloMNDGIWSCSQ2045-73-83 04:05:00 Test Item Value Reference Range Interpretation Comments RDW (test code = RDW) 14.9 11.5-14.5 [facility] CenterIezpnagOFYKCKDLFZ7659-92-11 04:05:00 Test Item Value Reference Range Interpretation Comments Platelet (test code = Platelet) 313 133-450 [facility] CenterCHEM [id number] 04:05:00 Test Item Value Reference Range Interpretation Comments Total Protein (test code = Total 7.8 6.4-8.4 Protein) [facility] CenterLlncmvqFJWCCUOOHO7344-84-50 04:05:00 Test Item Value Reference Range Interpretation Comments MPV (test code = MPV) 8.8 7.4-10.4 [facility]LqfwvieJOEDXEMSIU7200-12-23 04:05:00 Test Item Value Reference Range Interpretation Comments Segs (test code = Segs) 74.5 45.0-75.0 [facility] SpringsSuunlgsMMPSGUCJWY4934-17-83 04:05:00 Test Item Value Reference Range Interpretation Comments Lymphocytes (test code = Lymphocytes) 13.5 20.0-40.0 [facility] HospitalFcyvnfvKTFKMVNWQA6779-82-18 04:05:00 Test Item Value Reference Range Interpretation Comments Monocytes (test code = Monocytes) 11.1 2.0-12.0 [facility] HospitalPcxwizoZTWYJHVRWT7597-84-81 04:05:00 Test Item Value Reference Range Interpretation Comments Eosinophils (test code = 0.4 See_Comment [A utomated message] The Eosinophils) system which ge nerated this result tra nsmitted reference range : <=4.0. The reference r hui was not used to int erpret this result as normal/abnormal . [facility] SpringsRvmjkovKCOTGGQPZN0911-14-73 04:05:00 Test Item Value Reference Range Interpretation Comments Basophils (test code = 0.5 See_Comment [Aut omated message] The Basophils) system which ge nerated this result tra nsmitted reference range : <=1.0. The reference r hui was not used to int erpret this result as normal/abnormal . [facility] CenterCARDIAC NDJJWVV9007-78-94 04:05:00 Test Item Value Reference Range Interpretation Comments Total CK (test code = Total CK) 476 12-191 [facility] HospitalXbdjlhlIXWXOZAKXA5857-22-18 04:05:00 Test Item Value Reference Range Interpretation Comments Neutrophils # (test code = Neutrophils 11.8 1.5-8.1 #) [facility] HospitalXhouveyCRRIDVYLHC7982-25-36 04:05:00 Test Item Value Reference Range Interpretation Comments Lymphocytes # (test code = Lymphocytes 2.2 1.0-5.5 #) [facility] SpringsBxhlfnkVWWTBLMVBY7543-77-91 04:05:00 Test Item Value Reference Range Interpretation Comments Monocytes # (test code 1.8 See_Comment [Aut omated message] The = Monocytes #) system which generated this result tra nsmitted reference range : <=0.8. The reference r hiu was not used to int erpret this result as normal/abnormal . [facility] [id number] 04:05:00 Test Item Value Reference Range Interpretation Comments Eosinophils # (test code 0.1 See_Comment [A utomated message] The = Eosinophils #) system whic h generated this result tra nsmitted reference range : <=0.5. The reference r hui was not used to int erpret this result as normal/abnormal . [facility] [id number] 04:05:00 Test Item Value Reference Range Interpretation Comments Glucose Lvl (test code = Glucose Lvl) 88 70-99 [facility] [id number] 04:05:00 Test Item Value Reference Range Interpretation Comments Albumin Lvl (test code = Albumin Lvl) 3.5 3.5-5.0 [facility] SpringsZedmuvgJCOYWMZEEX3286-78-89 04:05:00 Test Item Value Reference Range Interpretation Comments Basophils # (test code 0.1 See_Comment [Aut omated message] The = Basophils #) system which generated this result tra nsmitted reference range : <=0.2. The reference r hui was not used to int erpret this result as normal/abnormal . [facility] CenterOrkoyquBYSZWOBYNA3700-10-63 04:05:00 Test Item Value Reference Range Interpretation Comments Coronavirus (COVID-19) Not Detected (07/26/21 DILSHAD (test code = 11:05 PM) Coronavirus (COVID-19) DILSHAD) [facility] CenterLszqvzdZVMRUIDRSO9773-44-38 04:05:00 Test Item Value Reference Range Interpretation Comments Acetaminoph Lvl (test code (07/26/21 11:05 PM) 10-20 = Acetaminoph Lvl) [facility]2022-05-18 04:05:00 Test Item Value Reference Range Interpretation Comments BUN (test code = BUN) 17 - [place] [id number] 04:05:00 Test Item Value Reference Range Interpretation Comments Ethanol Lvl (test code = Ethanol <3.0 mg/dL Lvl) [place] [id number] 04:05:00 Test Item Value Reference Range Interpretation Comments Etoh (%) (test code = Etoh (%)) <0.003 % [place] [id number] 04:05:00 Test Item Value Reference Range Interpretation Comments Salicylate Lvl (test no gt See_Comment [Autom ated message] The code = Salicylate Lvl) syste m which generated this result tra nsmitted reference range : <=30.0. The reference r hui was not used to int erpret this result as normal/abnormal . [facility] [id number] 04:05:00 Test Item Value Reference Range Interpretation Comments ALT (test code = ALT) 25 See_Comment [Auto mated message] The system which ge nerated this result transmit haja reference range : <=65. The reference range was not used to interpr et this result as jazmin l/abnormal. [facility] [id number] 04:05:00 Test Item Value Reference Range Interpretation Comments Creatinine Lvl (test code = Creatinine 0.70 0.50-1.40 Lvl) [facility] [id number] 04:05:00 Test Item Value Reference Range Interpretation Comments AST (test code = AST) 28 See_Comment [Auto mated message] The system which ge nerated this result transmit haja reference range : <=37. The reference range was not used to interpr et this result as jazmin l/abnormal. [facility] [id number] 04:05:00 Test Item Value Reference Range Interpretation Comments Alk Phos (test code = Alk Phos) 78 39-136 [facility] [id number] 04:05:00 Test Item Value Reference Range Interpretation Comments Bili Total (test code = Bili Total) 0.6 0.2-1.3 [facility] [id number] 04:05:00 Test Item Value Reference Range Interpretation Comments AGAP (test code = AGAP) 9.6 10.0-20.0 [facility] [id number] 04:05:00 Test Item Value Reference Range Interpretation Comments Sodium Lvl (test code = Sodium Lvl) 139 135-145 [facility] [id number] 04:05:00 Test Item Value Reference Range Interpretation Comments B/C Ratio (test code = B/C Ratio) 24 1 6-25 [facility] CenterweeSpringNOVANT [facility]THOP[facility] [id number] 04:05:00 Test Item Value Reference Range Interpretation Comments Globulin (test code = Globulin) 4.3 2.7-4.2 [facility] [id number] 04:05:00 Test Item Value Reference Range Interpretation Comments A/G Ratio (test code = A/G Ratio) 0.8 1 0.7-1.6 [facility] [id number] 04:05:00 Test Item Value Reference Range Interpretation Comments eGFR (test code = eGFR) 122 [facility] [id number] 04:05:00 Test Item Value Reference Range Interpretation Comments Potassium Lvl (test code = Potassium 3.6 3.5-5.1 Lvl) [facility] Center[facility] [id number] 04:05:00 Test Item Value Reference Range Interpretation Comments U Amph Scr (test code Positive *ABN*(07/26/21 = U Amph Scr) 11:05 PM) [facility] CenterweeSpringDRUG [id number] 04:05:00 Test Item Value Reference Range Interpretation Comments U Katie Scr (test code Negative *NA*(07/26/21 = U Katie Scr) 11:05 PM) [facility] CenterweeSpringDRUG [id number] 04:05:00 Test Item Value Reference Range Interpretation Comments U Benzodiaz Scr (test Positive *ABN*(07/26/21 code = U Benzodiaz Scr) 11:05 PM) [facility] CenterweeSpringDRUG [id number] 04:05:00 Test Item Value Reference Range Interpretation Comments U Cocaine Scr (test Positive *ABN*(07/26/21 code = U Cocaine Scr) 11:05 PM) [facility] [id number] 04:05:00 Test Item Value Reference Range Interpretation Comments Chloride Lvl (test code = Chloride Lvl) 106 95-109 [facility] CenterAr[facility] [id number] 04:05:00 Test Item Value Reference Range Interpretation Comments U Cannab Scr (test Positive *ABN*(07/26/21 code = U Cannab Scr) 11:05 PM) [facility] CenterannDRUG [id number] 04:05:00 Test Item Value Reference Range Interpretation Comments U Opiate Scr (test Negative *NA*(07/26/21 code = U Opiate Scr) 11:05 PM) [facility] [id number] 04:05:00 Test Item Value Reference Range Interpretation Comments U Phencyclidine Scr (test Negative code = U Phencyclidine *NA*(07/26/21 11:05 Scr) PM) [facility] Centerann[facility] [id number] 04:05:00 Test Item Value Reference Range Interpretation Comments UDS Note (test code = See Note (07/26/21 11:05 UDS Note) PM) [facility] HospitalHkvnlbdXMCYPOCZTDVAX9193-35-34 04:05:00 Test Item Value Reference Range Interpretation Comments S Preg (test code = S Negative *NA*(07/26/21 Preg) 11:05 PM) [facility] [employer] [id number] 04:05:00 Test Item Value Reference Range Interpretation Comments CO2 (test code = CO2) 27 24-32 [facility] FcjqpwqZMTBRPLSTH5006-02-23 04:05:00 Test Item Value Reference Range Interpretation Comments WBC (test code = WBC) 15.9 3.7-10.4 [facility] RoytenhRCEEFLIIHD7025-49-48 04:05:00 Test Item Value Reference Range Interpretation Comments RBC (test code = RBC) 4.06 4.20-5.40 [facility] GqgtmdqGPTQEKDXYY1851-06-14 04:05:00 Test Item Value Reference Range Interpretation Comments Hgb (test code = Hgb) 12.1 12.0-16.0 [facility] YdkpyiwSITFKOZDKQ4708-92-01 04:05:00 Test Item Value Reference Range Interpretation Comments Hct (test code = Hct) 35.3 36.0-48.0 [facility] ZkebvxrWNOAZZBXDR7839-94-29 04:05:00 Test Item Value Reference Range Interpretation Comments MCV (test code = MCV) 86.9 80.0-98.0 [facility] [employer] [id number] 04:05:00 Test Item Value Reference Range Interpretation Comments Calcium Lvl (test code = Calcium Lvl) 8.1 8.5-10.5 [facility] SpringsVozhyykWSNNWSIKKH9343-32-49 04:05:00 Test Item Value Reference Range Interpretation Comments MCH (test code = MCH) 29.7 pg 27.0-31.0 [facility] SpringsWzddralSQJZANZYXN1401-13-44 04:05:00 Test Item Value Reference Range Interpretation Comments MCHC (test code = MCHC) 34.2 32.0-36.0 [facility] SpringsTleiyruMYSKUIITEE6830-11-48 04:05:00 Test Item Value Reference Range Interpretation Comments RDW (test code = RDW) 14.9 11.5-14.5 [facility] SpringsIvkxnpqONRDAMWQAJ7485-65-19 04:05:00 Test Item Value Reference Range Interpretation Comments Platelet (test code = Platelet) 313 133-450 [facility] SpringsXehwmpkHHXJDKAOMS6765-64-18 04:05:00 Test Item Value Reference Range Interpretation Comments MPV (test code = MPV) 8.8 7.4-10.4 [facility]2022-05-18 04:05:00 Test Item Value Reference Range Interpretation Comments Total Protein (test code = Total 7.8 6.4-8.4 Protein) [facility] SpringsOmlypwxRMGVVOYGVL3883-00-93 04:05:00 Test Item Value Reference Range Interpretation Comments Segs (test code = Segs) 74.5 45.0-75.0 [facility] SpringsGhqavfkRHWCIZVJDF6482-64-44 04:05:00 Test Item Value Reference Range Interpretation Comments Lymphocytes (test code = Lymphocytes) 13.5 20.0-40.0 [facility] SpringsKypzgclLARQTNKVHE5094-03-21 04:05:00 Test Item Value Reference Range Interpretation Comments Monocytes (test code = Monocytes) 11.1 2.0-12.0 [facility] SpringsKgojpzgCCLMCJYPBN9944-80-03 04:05:00 Test Item Value Reference Range Interpretation Comments Eosinophils (test code = 0.4 See_Comment [A utomated message] The Eosinophils) system which ge nerated this result tra nsmitted reference range : <=4.0. The reference r hui was not used to int erpret this result as normal/abnormal . [facility] SpringsLdeteyxGIKJOMQRRZ2499-17-67 04:05:00 Test Item Value Reference Range Interpretation Comments Basophils (test code = 0.5 See_Comment [Aut omated message] The Basophils) system which ge nerated this result tra nsmitted reference range : <=1.0. The reference r hui was not used to int erpret this result as normal/abnormal . [facility]2022-05-18 04:05:00 Test Item Value Reference Range Interpretation Comments Albumin Lvl (test code = Albumin Lvl) 3.5 3.5-5.0 [facility] SpringsRydrousDYABKRWXCI6281-61-53 04:05:00 Test Item Value Reference Range Interpretation Comments Neutrophils # (test code = Neutrophils 11.8 1.5-8.1 #) [facility] SpringsVlhneddNIAJSKCGMB7966-83-99 04:05:00 Test Item Value Reference Range Interpretation Comments Lymphocytes # (test code = Lymphocytes 2.2 1.0-5.5 #) [facility] SpringsYfavcrbMSZYEOINLK9311-66-14 04:05:00 Test Item Value Reference Range Interpretation Comments Monocytes # (test code 1.8 See_Comment [Aut omated message] The = Monocytes #) system which generated this result tra nsmitted reference range : <=0.8. The reference r hui was not used to int erpret this result as normal/abnormal . [facility] SpringsMaqppysNNGQINVUJP4242-18-74 04:05:00 Test Item Value Reference Range Interpretation Comments Eosinophils # (test code 0.1 See_Comment [A utomated message] The = Eosinophils #) system whic h generated this result tra nsmitted reference range : <=0.5. The reference r hui was not used to int erpret this result as normal/abnormal . [facility] SpringsDvtgpfhDCBCDPWUGZ9372-41-63 04:05:00 Test Item Value Reference Range Interpretation Comments Basophils # (test code 0.1 See_Comment [Aut omated message] The = Basophils #) system which generated this result tra nsmitted reference range : <=0.2. The reference r hui was not used to int erpret this result as normal/abnormal . [facility] CenterFwemrbvKJTITKISDG0433-56-90 04:05:00 Test Item Value Reference Range Interpretation Comments Coronavirus (COVID-19) Not Detected (07/26/21 DILSHAD (test code = 11:05 PM) Coronavirus (COVID-19) DILSHAD) [facility]2022-05-18 04:05:00 Test Item Value Reference Range Interpretation Comments ALT (test code = ALT) 25 See_Comment [Auto mated message] The system which ge nerated this result transmit haja reference range : <=65. The reference range was not used to interpr et this result as jazmin l/abnormal. [facility] CenterZhahnttSHDJLCZEMA1985-39-08 04:05:00 Test Item Value Reference Range Interpretation Comments Acetaminoph Lvl (test code (07/26/21 11:05 PM) 10-20 = Acetaminoph Lvl) [facility] CenterMtrtpqqRRRMSNEEPI7787-31-68 04:05:00 Test Item Value Reference Range Interpretation Comments Ethanol Lvl (test code = Ethanol <3.0 mg/dL Lvl) [facility] CenterFodowmfVVIKZLBTPS1234-05-15 04:05:00 Test Item Value Reference Range Interpretation Comments Etoh (%) (test code = Etoh (%)) <0.003 % [facility] CenterPldxgcpOJWVPGKYXM2277-71-44 04:05:00 Test Item Value Reference Range Interpretation Comments Salicylate Lvl (test no gt See_Comment [Autom ated message] The code = Salicylate Lvl) syste m which generated this result tra nsmitted reference range : <=30.0. The reference r hui was not used to int erpret this result as normal/abnormal . [facility] [employer] [id number] 04:05:00 Test Item Value Reference Range Interpretation Comments AST (test code = AST) 28 See_Comment [Auto mated message] The system which ge nerated this result transmit haja reference range : <=37. The reference range was not used to interpr et this result as jazmin l/abnormal. [facility] [employer] [id number] 04:05:00 Test Item Value Reference Range Interpretation Comments Alk Phos (test code = Alk Phos) 78 39-136 [facility] [employer] [id number] 04:05:00 Test Item Value Reference Range Interpretation Comments Bili Total (test code = Bili Total) 0.6 0.2-1.3 [facility] [employer] [id number] 04:05:00 Test Item Value Reference Range Interpretation Comments AGAP (test code = AGAP) 9.6 10.0-20.0 [facility] [employer] [id number] 04:05:00 Test Item Value Reference Range Interpretation Comments B/C Ratio (test code = B/C Ratio) 24 1 6-25 [facility] [id number] 04:05:00 Test Item Value Reference Range Interpretation Comments Globulin (test code = Globulin) 4.3 2.7-4.2 [facility] [id number] 04:05:00 Test Item Value Reference Range Interpretation Comments A/G Ratio (test code = A/G Ratio) 0.8 1 0.7-1.6 [facility]ann[facility] [id number] 04:05:00 Test Item Value Reference Range Interpretation Comments eGFR (test code = eGFR) 122 [facility] CenterannDRUG [id number] 04:05:00 Test Item Value Reference Range Interpretation Comments U Amph Scr (test code Positive *ABN*(07/26/21 = U Amph Scr) 11:05 PM) [facility]annDR[facility] [id number] 04:05:00 Test Item Value Reference Range Interpretation Comments U Katie Scr (test code Negative *NA*(07/26/21 = U Katie Scr) 11:05 PM) [facility] CenterannBeta Cat Pharmaceuticals [id number] 04:05:00 Test Item Value Reference Range Interpretation Comments U Benzodiaz Scr (test Positive *ABN*(07/26/21 code = U Benzodiaz Scr) 11:05 PM) [facility] CenterweeSpringDRUG [id number] 04:05:00 Test Item Value Reference Range Interpretation Comments U Cocaine Scr (test Positive *ABN*(07/26/21 code = U Cocaine Scr) 11:05 PM) [facility] CenterannDR[facility] [id number] 04:05:00 Test Item Value Reference Range Interpretation Comments U Cannab Scr (test Positive *ABN*(07/26/21 code = U Cannab Scr) 11:05 PM) [facility] Centerann[facility] [id number] 04:05:00 Test Item Value Reference Range Interpretation Comments U Opiate Scr (test Negative *NA*(07/26/21 code = U Opiate Scr) 11:05 PM) [facility] Centerann[facility] [id number] 04:05:00 Test Item Value Reference Range Interpretation Comments U Phencyclidine Scr (test Negative code = U Phencyclidine *NA*(07/26/21 11:05 Scr) PM) [facility] CenterannBeta Cat Pharmaceuticals [id number] 04:05:00 Test Item Value Reference Range Interpretation Comments UDS Note (test code = See Note (07/26/21 11:05 UDS Note) PM) [place] [id number] 04:05:00 Test Item Value Reference Range Interpretation Comments S Preg (test code = S Negative *NA*(07/26/21 Preg) 11:05 PM) [facility] SpringsFupmiizYGXOQUQMSC2023-79-48 04:05:00 Test Item Value Reference Range Interpretation Comments WBC (test code = WBC) 15.9 3.7-10.4 [facility] SpringsAffjzxqGCSEETXWYH8471-97-57 04:05:00 Test Item Value Reference Range Interpretation Comments RBC (test code = RBC) 4.06 4.20-5.40 [facility] SpringsXkcfiqoQETPYJLYMP5466-46-22 04:05:00 Test Item Value Reference Range Interpretation Comments Hgb (test code = Hgb) 12.1 12.0-16.0 [facility] SpringsKqwwmhsBOFYYLNGTE2159-33-67 04:05:00 Test Item Value Reference Range Interpretation Comments Hct (test code = Hct) 35.3 36.0-48.0 [facility] SpringsBycwlpyOAXSIXHLQH3008-25-77 04:05:00 Test Item Value Reference Range Interpretation Comments MCV (test code = MCV) 86.9 80.0-98.0 [facility] SpringsTpryamfSXWBIHDGDN4407-30-94 04:05:00 Test Item Value Reference Range Interpretation Comments MCH (test code = MCH) 29.7 pg 27.0-31.0 [facility] SpringsGmowzpnOKRDNOEWKD4256-51-85 04:05:00 Test Item Value Reference Range Interpretation Comments MCHC (test code = MCHC) 34.2 32.0-36.0 [facility] SpringsYmxmmwhJYQRZDOARU4516-26-31 04:05:00 Test Item Value Reference Range Interpretation Comments RDW (test code = RDW) 14.9 11.5-14.5 [facility] SpringsAddkaulIZGRFEXVLX8093-14-58 04:05:00 Test Item Value Reference Range Interpretation Comments Platelet (test code = Platelet) 313 219-450 [facility] SpringsIundpreZILSYUJYSF6112-89-62 04:05:00 Test Item Value Reference Range Interpretation Comments MPV (test code = MPV) 8.8 7.4-10.4 [facility] SpringsOtqdvwsCAYFJLIWNH9733-35-30 04:05:00 Test Item Value Reference Range Interpretation Comments Segs (test code = Segs) 74.5 45.0-75.0 [facility] SpringsOqzjqpwDGPDOBCCAQ5683-76-50 04:05:00 Test Item Value Reference Range Interpretation Comments Lymphocytes (test code = Lymphocytes) 13.5 20.0-40.0 [facility] SpringsMstspwmSWAJSLUSTA6871-14-28 04:05:00 Test Item Value Reference Range Interpretation Comments Monocytes (test code = Monocytes) 11.1 2.0-12.0 [facility] SpringsCczzlidHXZZAUSFQL6216-11-51 04:05:00 Test Item Value Reference Range Interpretation Comments Eosinophils (test code = 0.4 See_Comment [A utomated message] The Eosinophils) system which ge nerated this result tra nsmitted reference range : <=4.0. The reference r hui was not used to int erpret this result as normal/abnormal . [facility] SpringsEdzynkbDERGGQRZKU1454-52-19 04:05:00 Test Item Value Reference Range Interpretation Comments Basophils (test code = 0.5 See_Comment [Aut omated message] The Basophils) system which ge nerated this result tra nsmitted reference range : <=1.0. The reference r hui was not used to int erpret this result as normal/abnormal . [facility] CenterCARDIAC [id number] 04:05:00 Test Item Value Reference Range Interpretation Comments Total CK (test code = Total CK) 476 12-191 [facility] CenterV[facility] [id number] 04:05:00 Test Item Value Reference Range Interpretation Comments Glucose Lvl (test code = Glucose Lvl) 88 70-99 [facility] SpringsJuwoqmwAQRPQITNMU1914-69-02 04:05:00 Test Item Value Reference Range Interpretation Comments Neutrophils # (test code = Neutrophils 11.8 1.5-8.1 #) [facility] Center[facility] [id number] 04:05:00 Test Item Value Reference Range Interpretation Comments BUN (test code = BUN) 17 7-22 [facility] [id number] 04:05:00 Test Item Value Reference Range Interpretation Comments Creatinine Lvl (test code = Creatinine 0.70 0.50-1.40 Lvl) [facility] [id number] 04:05:00 Test Item Value Reference Range Interpretation Comments Sodium Lvl (test code = Sodium Lvl) 139 135-145 [place] [address]-05-18 04:05:00 Test Item Value Reference Range Interpretation Comments Potassium Lvl (test code = Potassium 3.6 3.5-5.1 Lvl) [place] 182332-05-18 04:05:00 Test Item Value Reference Range Interpretation Comments Chloride Lvl (test code = Chloride Lvl) 106 95-109 [place] 182332-05-18 04:05:00 Test Item Value Reference Range Interpretation Comments CO2 (test code = CO2) 27 24-32 [place] [address]-05-18 04:05:00 Test Item Value Reference Range Interpretation Comments Calcium Lvl (test code = Calcium Lvl) 8.1 8.5-10.5 [place] [address]-05-18 04:05:00 Test Item Value Reference Range Interpretation Comments Total Protein (test code = Total 7.8 6.4-8.4 Protein) [place] [address]-05-18 04:05:00 Test Item Value Reference Range Interpretation Comments Albumin Lvl (test code = Albumin Lvl) 3.5 3.5-5.0 [place] [address]-05-18 04:05:00 Test Item Value Reference Range Interpretation Comments ALT (test code = ALT) 25 See_Comment [Auto mated message] The system which ge nerated this result transmit haja reference range : <=65. The reference range was not used to interpr et this result as jazmin l/abnormal. [place] [id number] 04:05:00 Test Item Value Reference Range Interpretation Comments Lymphocytes # (test code = Lymphocytes 2.2 1.0-5.5 #) [place] [address]-05-18 04:05:00 Test Item Value Reference Range Interpretation Comments AST (test code = AST) 28 See_Comment [Auto mated message] The system which ge nerated this result transmit haja reference range : <=37. The reference range was not used to interpr et this result as jazmin l/abnormal. [place] [address]-05-18 04:05:00 Test Item Value Reference Range Interpretation Comments Alk Phos (test code = Alk Phos) 78 39-136 [place] 182332-05-18 04:05:00 Test Item Value Reference Range Interpretation Comments Bili Total (test code = Bili Total) 0.6 0.2-1.3 [facility] [id number] 04:05:00 Test Item Value Reference Range Interpretation Comments AGAP (test code = AGAP) 9.6 10.0-20.0 [facility] [employer] [id number] 04:05:00 Test Item Value Reference Range Interpretation Comments B/C Ratio (test code = B/C Ratio) 24 1 6-25 [facility] CenterV[facility] [id number] 04:05:00 Test Item Value Reference Range Interpretation Comments Globulin (test code = Globulin) 4.3 2.7-4.2 [facility] [id number] 04:05:00 Test Item Value Reference Range Interpretation Comments A/G Ratio (test code = A/G Ratio) 0.8 1 0.7-1.6 [facility] CenterV[facility] [id number] 04:05:00 Test Item Value Reference Range Interpretation Comments eGFR (test code = eGFR) 122 [facility] CenterAr[facility] [id number] 04:05:00 Test Item Value Reference Range Interpretation Comments U Amph Scr (test code Positive *ABN*(07/26/21 = U Amph Scr) 11:05 PM) [facility] CenterAr[facility] [id number] 04:05:00 Test Item Value Reference Range Interpretation Comments U Katie Scr (test code Negative *NA*(07/26/21 = U Katie Scr) 11:05 PM) [facility] [id number] 04:05:00 Test Item Value Reference Range Interpretation Comments Monocytes # (test code 1.8 See_Comment [Aut omated message] The = Monocytes #) system which generated this result tra nsmitted reference range : <=0.8. The reference r hui was not used to int erpret this result as normal/abnormal . [facility] [employer] [id number] 04:05:00 Test Item Value Reference Range Interpretation Comments U Benzodiaz Scr (test Positive *ABN*(07/26/21 code = U Benzodiaz Scr) 11:05 PM) [facility] CenterAr[facility] [id number] 04:05:00 Test Item Value Reference Range Interpretation Comments U Cocaine Scr (test Positive *ABN*(07/26/21 code = U Cocaine Scr) 11:05 PM) [facility] CenterannDR[facility] [id number] 04:05:00 Test Item Value Reference Range Interpretation Comments U Cannab Scr (test Positive *ABN*(07/26/21 code = U Cannab Scr) 11:05 PM) [facility] [id number] 04:05:00 Test Item Value Reference Range Interpretation Comments U Opiate Scr (test Negative *NA*(07/26/21 code = U Opiate Scr) 11:05 PM) [facility] [id number] 04:05:00 Test Item Value Reference Range Interpretation Comments U Phencyclidine Scr (test Negative code = U Phencyclidine *NA*(07/26/21 11:05 Scr) PM) [facility] [id number] 04:05:00 Test Item Value Reference Range Interpretation Comments UDS Note (test code = See Note (07/26/21 11:05 UDS Note) PM) [id number] 04:05:00 Test Item Value Reference Range Interpretation Comments S Preg (test code = S Negative *NA*(07/26/21 Preg) 11:05 PM) [facility] [id number] 04:05:00 Test Item Value Reference Range Interpretation Comments WBC (test code = WBC) 15.9 3.7-10.4 [facility] CenterQczfxfyWJFSCLHPGA4043-02-41 04:05:00 Test Item Value Reference Range Interpretation Comments RBC (test code = RBC) 4.06 4.20-5.40 [facility] CenterEfpqbivSAFHBLIMWN2109-16-00 04:05:00 Test Item Value Reference Range Interpretation Comments Hgb (test code = Hgb) 12.1 12.0-16.0 [facility] [id number] 04:05:00 Test Item Value Reference Range Interpretation Comments Eosinophils # (test code 0.1 See_Comment [A utomated message] The = Eosinophils #) system whic h generated this result tra nsmitted reference range : <=0.5. The reference r hui was not used to int erpret this result as normal/abnormal . [facility] [id number] 04:05:00 Test Item Value Reference Range Interpretation Comments Hct (test code = Hct) 35.3 36.0-48.0 [facility] SpringsMugbtcvVJLOWDIJVJ2666-56-85 04:05:00 Test Item Value Reference Range Interpretation Comments MCV (test code = MCV) 86.9 80.0-98.0 [place] [id number] 04:05:00 Test Item Value Reference Range Interpretation Comments MCH (test code = MCH) 29.7 pg 27.0-31.0 [place] [id number] 04:05:00 Test Item Value Reference Range Interpretation Comments MCHC (test code = MCHC) 34.2 32.0-36.0 [place] [id number] 04:05:00 Test Item Value Reference Range Interpretation Comments RDW (test code = RDW) 14.9 11.5-14.5 [place] [id number] 04:05:00 Test Item Value Reference Range Interpretation Comments Platelet (test code = Platelet) 313 133-450 [facility] SpringsSewtkwyZHKFTOVEXW6958-49-26 04:05:00 Test Item Value Reference Range Interpretation Comments MPV (test code = MPV) 8.8 7.4-10.4 [facility] [id number] 04:05:00 Test Item Value Reference Range Interpretation Comments Segs (test code = Segs) 74.5 45.0-75.0 [facility] SpringsLcwmdabBCUJMMBBGG6093-84-47 04:05:00 Test Item Value Reference Range Interpretation Comments Lymphocytes (test code = Lymphocytes) 13.5 20.0-40.0 [facility] SpringsUhdbydiXNRYIDQWTQ7914-59-97 04:05:00 Test Item Value Reference Range Interpretation Comments Monocytes (test code = Monocytes) 11.1 2.0-12.0 [facility] SpringsEaqcnnpLVLNKQLRCQ7370-20-40 04:05:00 Test Item Value Reference Range Interpretation Comments Basophils # (test code 0.1 See_Comment [Aut omated message] The = Basophils #) system which generated this result tra nsmitted reference range : <=0.2. The reference r hui was not used to int erpret this result as normal/abnormal . [place] [id number] 04:05:00 Test Item Value Reference Range Interpretation Comments Eosinophils (test code = 0.4 See_Comment [A utomated message] The Eosinophils) system which ge nerated this result tra nsmitted reference range : <=4.0. The reference r hui was not used to int erpret this result as normal/abnormal . [facility] SpringsAkkuisrCQHNUQLHDX4762-96-11 04:05:00 Test Item Value Reference Range Interpretation Comments Basophils (test code = 0.5 See_Comment [Aut omated message] The Basophils) system which ge nerated this result tra nsmitted reference range : <=1.0. The reference r hui was not used to int erpret this result as normal/abnormal . [facility] SpringsCstmcgyBRKCTAMJUN7730-88-81 04:05:00 Test Item Value Reference Range Interpretation Comments Neutrophils # (test code = Neutrophils 11.8 1.5-8.1 #) [facility] SpringsWwwyiicURJLVXZLAD3529-88-44 04:05:00 Test Item Value Reference Range Interpretation Comments Lymphocytes # (test code = Lymphocytes 2.2 1.0-5.5 #) [facility] SpringsJzgjtccQAOUAPOMLS1389-29-16 04:05:00 Test Item Value Reference Range Interpretation Comments Monocytes # (test code 1.8 See_Comment [Aut omated message] The = Monocytes #) system which generated this result tra nsmitted reference range : <=0.8. The reference r hui was not used to int erpret this result as normal/abnormal . [facility] Sp[id number] 04:05:00 Test Item Value Reference Range Interpretation Comments Eosinophils # (test code 0.1 See_Comment [A utomated message] The = Eosinophils #) system whic h generated this result tra nsmitted reference range : <=0.5. The reference r hui was not used to int erpret this result as normal/abnormal . [facility] [id number] 04:05:00 Test Item Value Reference Range Interpretation Comments Basophils # (test code 0.1 See_Comment [Aut omated message] The = Basophils #) system which generated this result tra nsmitted reference range : <=0.2. The reference r hui was not used to int erpret this result as normal/abnormal . [facility] CenterCwbpqptBZATPCXRBQ7545-64-40 04:05:00 Test Item Value Reference Range Interpretation Comments Coronavirus (COVID-19) Not Detected (07/26/21 DILSHAD (test code = 11:05 PM) Coronavirus (COVID-19) DILSHAD) [place] [id number] 04:05:00 Test Item Value Reference Range Interpretation Comments Acetaminoph Lvl (test code (07/26/21 11:05 PM) 10-20 = Acetaminoph Lvl) [place] [id number] 04:05:00 Test Item Value Reference Range Interpretation Comments Ethanol Lvl (test code = Ethanol <3.0 mg/dL Lvl) [facility] CenterKkmhreuUEQVCPUQED9373-63-39 04:05:00 Test Item Value Reference Range Interpretation Comments Coronavirus (COVID-19) Not Detected (07/26/21 DILSHAD (test code = 11:05 PM) Coronavirus (COVID-19) DILSHAD) [place] [id number] 04:05:00 Test Item Value Reference Range Interpretation Comments Etoh (%) (test code = Etoh (%)) <0.003 % [place] [id number] 04:05:00 Test Item Value Reference Range Interpretation Comments Salicylate Lvl (test no gt See_Comment [Autom ated message] The code = Salicylate Lvl) syste m which generated this result tra nsmitted reference range : <=30.0. The reference r hui was not used to int erpret this result as normal/abnormal . [place] [id number] 04:05:00 Test Item Value Reference Range Interpretation Comments Acetaminoph Lvl (test code (07/26/21 11:05 PM) 10-20 = Acetaminoph Lvl) [place] [id number] 04:05:00 Test Item Value Reference Range Interpretation Comments Ethanol Lvl (test code = Ethanol <3.0 mg/dL Lvl) [place] [id number] 04:05:00 Test Item Value Reference Range Interpretation Comments Etoh (%) (test code = Etoh (%)) <0.003 % [place] [id number] 04:05:00 Test Item Value Reference Range Interpretation Comments Salicylate Lvl (test no gt See_Comment [Autom ated message] The code = Salicylate Lvl) syste m which generated this result tra nsmitted reference range : <=30.0. The reference r hui was not used to int erpret this result as normal/abnormal . [facility] CenterCoravin [id number] 04:05:00 Test Item Value Reference Range Interpretation Comments Total CK (test code = Total CK) 476 12-191 [facility] CenterVascular Pharmaceuticals [id number] 04:05:00 Test Item Value Reference Range Interpretation Comments Glucose Lvl (test code = Glucose Lvl) 88 70-99 [facility] [id number] 04:05:00 Test Item Value Reference Range Interpretation Comments BUN (test code = BUN) 17 7-22 [facility] [id number] 04:05:00 Test Item Value Reference Range Interpretation Comments Creatinine Lvl (test code = Creatinine 0.70 0.50-1.40 Lvl) [facility] [id number] 04:05:00 Test Item Value Reference Range Interpretation Comments Sodium Lvl (test code = Sodium Lvl) 139 135-145 [facility] [id number] 04:05:00 Test Item Value Reference Range Interpretation Comments Potassium Lvl (test code = Potassium 3.6 3.5-5.1 Lvl) [facility] [id number] 04:05:00 Test Item Value Reference Range Interpretation Comments Chloride Lvl (test code = Chloride Lvl) 106 95-109 [facility] CenterCor[facility] [id number] 04:05:00 Test Item Value Reference Range Interpretation Comments Total CK (test code = Total CK) 476 12-191 [facility] [id number] 04:05:00 Test Item Value Reference Range Interpretation Comments CO2 (test code = CO2) 27 24-32 [facility] [id number] 04:05:00 Test Item Value Reference Range Interpretation Comments Calcium Lvl (test code = Calcium Lvl) 8.1 8.5-10.5 [facility] [id number] 04:05:00 Test Item Value Reference Range Interpretation Comments Total Protein (test code = Total 7.8 6.4-8.4 Protein) [facility] [id number] 04:05:00 Test Item Value Reference Range Interpretation Comments Albumin Lvl (test code = Albumin Lvl) 3.5 3.5-5.0 [employer]2022-05-18 04:05:00 Test Item Value Reference Range Interpretation Comments ALT (test code = ALT) 25 See_Comment [Auto mated message] The system which ge nerated this result transmit haja reference range : <=65. The reference range was not used to interpr et this result as jazmin l/abnormal. [employer]r [id number] 04:05:00 Test Item Value Reference Range Interpretation Comments AST (test code = AST) 28 See_Comment [Auto mated message] The system which ge nerated this result transmit haja reference range : <=37. The reference range was not used to interpr et this result as jazmin l/abnormal. [employer]r [id number] 04:05:00 Test Item Value Reference Range Interpretation Comments Alk Phos (test code = Alk Phos) 78 39-136 [employer] [id number] 04:05:00 Test Item Value Reference Range Interpretation Comments Bili Total (test code = Bili Total) 0.6 0.2-1.3 [employer]2022-05-18 04:05:00 Test Item Value Reference Range Interpretation Comments AGAP (test code = AGAP) 9.6 10.0-20.0 [employer]2022-05-18 04:05:00 Test Item Value Reference Range Interpretation Comments B/C Ratio (test code = B/C Ratio) 24 1 6-25 [employer]2022-05-18 04:05:00 Test Item Value Reference Range Interpretation Comments Glucose Lvl (test code = Glucose Lvl) 88 70-99 [employer]2022-05-18 04:05:00 Test Item Value Reference Range Interpretation Comments Globulin (test code = Globulin) 4.3 2.7-4.2 [facility] [place]
[2022-07-09 17:01] LABS: Specific Gravity 1.007 (1.005-1.030)
[2022-07-09 17:03] LABS: Specific Gravity 1.007 (1.005-1.030); Urine Bacteria <20 /HPF (<20); Urine Bilirubin NEGATIVE (Negative); Urine Blood Negative (Negative); Urine Clarity Clear (Clear); Urine Color Colorless (Yellow); Urine Glucose NEGATIVE (Negative); Urine Mucus Slight /HPF (None Seen); Urine Protein NEGATIVE (Negative); Urine RBC <5 /HPF (None Seen); Urine Urobilinogen Normal (Normal); Urine pH 5.5 (5.0-7.0)
--- NOTE | 2022-07-09 17:09 | EDPHYS ---
Physician Documentation [facility] Name: Margaret Brown Age: 27 yrs Sex: Female : 1995 Arrival Date: 07/09/2022 Time: 16:13 Bed 17 Private MD: ED Physician Iraj Aranda HPI: 07/09 16:45 This 27 yrs old Female presents to ER via Ambulatory with complaints of Low snw Back Pain, Flank Pain. 16:45 The patient presents with pain that is acute, with no known mechanism of injury. The snw symptoms are located in the low back. The pain does not radiate. The problem was sustained from unknown cause. Onset: The symptoms/episode began/occurred acutely. Associated signs and symptoms: Pertinent positives: dysuria, menstrual irregularity. Severity of symptoms: At their worst the symptoms were moderate. It is unknown whether or not the patient has had similar symptoms in the past. pt is at [facility]. [employer]: 16:33 LMP 06/03/2022 aa5 Historical: - Allergies: 16:31 No Known Allergies; aa5 - Home Meds: 16:34 buspirone 10 mg Oral tablet once [Active]; gabapentin 300 mg oral capsule 3 times per aa5 day [Active]; sertraline 100 mg oral tablet every 24 hours [Active]; prazosin 1 mg Oral capsule every day at bedtime [Active]; quetiapine 100 mg oral tablet every day at bedtime [Active]; - PMHx: 16:31 PTSD; Bipolar disorder; Depressive disorder; METH ABUSE CURRENTLY AT [facility];aa5 - PSHx: 16:31 LEFT HAND; aa5 - Immunization history:: Adult Immunizations unknown. - Social history:: Smoking status: Patient reports the use of cigarette tobacco products, smokes one-half pack cigarettes per day. ROS: 16:46 Constitutional: Negative for fever, chills, and weight loss, Eyes: Negative for injury, snw pain, redness, and discharge, ENT: Negative for injury, pain, and discharge, Neck: Negative for injury, pain, and swelling, Cardiovascular: Negative for chest pain, palpitations, and edema, Respiratory: Negative for shortness of breath, cough, wheezing, and pleuritic chest pain, Abdomen/GI: Negative for abdominal pain, nausea, vomiting, diarrhea, and constipation, Back: Negative for injury and pain, MS/Extremity: Negative for injury and deformity, Skin: Negative for injury, rash, and discoloration, Neuro: Negative for headache, weakness, numbness, tingling, and seizure, Psych: Negative for depression, anxiety, suicide ideation, homicidal ideation, and hallucinations. 16:46 : Positive for urinary symptoms, urinary frequency, burning with urination, vaginal discharge, missed period. Exam: 17:11 Constitutional: This is a well developed, well nourished patient who is awake, alert, snw and in no acute distress. Head/Face: Normocephalic, atraumatic. Eyes: Pupils equal round and reactive to light, extra-ocular motions intact. Lids and lashes normal. Conjunctiva and sclera are non-icteric and not injected. Cornea within normal limits. Periorbital areas with no swelling, redness, or edema. ENT: Nares patent. No nasal discharge, no septal abnormalities noted. Tympanic membranes are normal and external auditory canals are clear. Oropharynx with no redness, swelling, or masses, exudates, or evidence of obstruction, uvula midline. Mucous membranes moist. Neck: Trachea midline, no thyromegaly or masses palpated, and no cervical lymphadenopathy. Supple, full range of motion without nuchal rigidity, or vertebral point tenderness. No Meningismus. Chest/axilla: Normal chest wall appearance and motion. Nontender with no deformity. No lesions are appreciated. Cardiovascular: Regular rate and rhythm with a normal S1 and S2. No gallops, murmurs, or rubs. Normal PMI, no JVD. No pulse deficits. Respiratory: Lungs have equal breath sounds bilaterally, clear to auscultation and percussion. No rales, rhonchi or wheezes noted. No increased work of breathing, no retractions or nasal flaring. Abdomen/GI: Soft, non-tender, with normal bowel sounds. No distension or tympany. No guarding or rebound. No evidence of tenderness throughout. Back: No spinal tenderness. No costovertebral tenderness. Full range of motion. Skin: Warm, dry with normal turgor. Normal color with no rashes, no lesions, and no evidence of cellulitis. MS/ Extremity: Pulses equal, no cyanosis. Neurovascular intact. Full, normal range of motion. Neuro: Awake and alert, GCS 15, oriented to person, place, time, and situation. Cranial nerves II-XII grossly intact. Motor strength 5/5 in all extremities. Sensory grossly intact. Cerebellar exam normal. Normal gait. Psych: Awake, alert, with orientation to person, place and time. Behavior, mood, and affect are within normal limits. Vital Signs: 16:30 BP 109 / 83; Pulse 89; Resp 16 S; Temp 97.7(TE); Pulse Ox 100% on R/A; Weight 56.7 kg aa5 (R); Height 5 ft. 2 in. (R); 16:30 Body Mass Index 22.86 (56.70 kg, 157.48 cm) aa5 MDM: 16:17 Patient medically screened. snw 16:47 Differential diagnosis: strain, sciatica, UTI. Data reviewed: vital signs, nurses notes.snw 17:11 Counseling: I had a detailed discussion with the patient and/or guardian regarding: the snw historical points, exam findings, and any diagnostic results supporting the discharge/admit diagnosis, lab results, the need for outpatient follow up, for definitive care, to return to the emergency department if symptoms worsen or persist or if there are any questions or concerns that arise at home. Special discussion: Based on the history and exam findings, there is no indication for further emergent testing or inpatient evaluation. I discussed with the patient/guardian the need to see the primary care provider for further evaluation of the symptoms. 07/09 16:17 Order name: Urine W/Microscopic (UAM); Complete Time: 17:07 snw 07/09 16:17 Order name: Test, Urine; Complete Time: 17:07 snw Administered Medications: 17:21 Drug: Ketorolac IM 30 mg Route: IM; Site: right deltoid; kc6 17:30 Follow up: Response: No adverse reaction kc6 Disposition: 17:38 I reviewed the patient's care provided by the Advanced Practice Provider and agree with jr11 the diagnosis and treatment plan. Disposition Summary: 07/09/22 17:09 Discharge Ordered Location: Home snw Condition: Stable snw Diagnosis - Low back pain snw - Dysuria snw Followup: snw - With: Emergency Department - When: As needed - Reason: Worsening of condition Followup: snw - With: Private Physician - When: 2 - 3 days - Reason: Recheck today's complaints, Continuance of care, Re-evaluation by your physician Discharge Instructions: - Discharge Summary Sheet snw - Musculoskeletal Pain snw - How to Use Cold Therapy snw - Rehydration, Adult snw - Heat Therapy snw Forms: - Medication Reconciliation Form snw - Thank You Letter snw - Antibiotic Education snw - Prescription Opioid Use snw Prescriptions: - Diclofenac Sodium 75 mg Oral Tablet Sustained Release - take 1 tablet by ORAL route 2 times per day; 30 tablet; Refills: 0, Product snw Selection Permitted Signatures: Dispatcher [employer] EDMS Katey Olmos, MANIPULATOR OPERATOR-C MANIPULATOR OPERATOR-Csnw Morelia Costello RN RN aa5 Iraj Aranda MD MD [id number] Chetna Hutchison RN RN [id number] Corrections: (The following items were deleted from the chart) 16:57 16:18 Urinalysis+U.LAB.BRZ ordered. EDFL EDMS
--- NOTE | 2022-07-09 17:09 | ER ---
Nurse's Notes [facility] Name: Margaret Brown Age: 27 yrs Sex: Female : 1995 Arrival Date: 07/09/2022 Time: 16:13 Bed 17 Private MD: Diagnosis: Low back pain;Dysuria Presentation: 07/09 16:30 Chief complaint: Patient states: LOW BACK PAIN X 1 MONTH AGO, PT REPORTS URINARY aa5 FREQUENCY, AND REPORTS WHITE VAGINAL DISCHARGE. Coronavirus screen: At this time, the client does not indicate any symptoms associated with coronavirus-19. Ebola Screen: Patient denies travel to an Ebola-affected area in the 21 days before illness onset. Initial Sepsis Screen: Does the patient meet any 2 criteria? No. Patient's initial sepsis screen is negative. Does the patient have a suspected source of infection? No. Patient's initial sepsis screen is negative. Risk Assessment: Do you want to hurt yourself or someone else? Patient reports no desire to harm self or others. Onset of symptoms was June 2022. 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 - Social history:: Smoking status: Patient reports the use of cigarette tobacco products, smokes one-half pack cigarettes per day. Screenin:[address] [facility] ED Fall Risk Assessment (Adult) History of falling in the last 3 months, kc6 including since admission No falls in past 3 months (0 pts) Confusion or Disorientation No (0 pts) Intoxicated or Sedated No (0 pts) Impaired Gait No (0 pts) Mobility Assist Device Used No (0 pt) Altered Elimination No (0 pt) Score/Fall Risk Level 0 - 2 = Low Risk Oriented to surroundings, Maintained a safe environment, Educated pt \T\ family on fall prevention, incl call for assistance when getting out of bed, Assessed \T\ reinforced patient's understanding of fall precautions, Hourly rounding (assess needs \T\ fall precautionary measures) done. Abuse screen: Denies threats or abuse. Denies injuries from another. Nutritional screening: No deficits noted. Tuberculosis screening: No symptoms or risk factors identified. Assessment: 16:15 General: Appears in no apparent distress. comfortable, Behavior is calm, cooperative, kc6 appropriate for age. Pain: Complains of pain in left low back and right low back Pain does not radiate. Pain currently is 7 out of 10 on a pain scale. Quality of pain is described as aching, Is continuous. Neuro: [place] Agitation-Sedation Scale (RASS): 0 - Alert and Calm Level of Consciousness is awake, alert, obeys commands, Oriented to person, place, time, situation, Appropriate for age. Cardiovascular: Capillary refill < 3 seconds. Respiratory: Airway is patent Trachea midline Respiratory effort is even, unlabored, Respiratory pattern is regular, symmetrical. GI: No signs and/or symptoms were reported involving the gastrointestinal system. : No signs and/or symptoms were reported regarding the genitourinary system. Urine is clear. EENT: No signs and/or symptoms were reported regarding the EENT system. Derm: No signs and/or symptoms reported regarding the dermatologic system. Skin is intact, Skin is pink, warm \T\ dry. Musculoskeletal: No signs and/or symptoms reported regarding the musculoskeletal system. Circulation, motion, and sensation intact. Capillary refill < 3 seconds, Range of motion: intact in all extremities. 16:45 Reassessment: Urine sent to lab . aa5 17:15 Reassessment: Patient appears in no apparent distress at this time. No changes from kc6 previously documented assessment. Patient and/or family updated on plan of care and expected duration. Pain level reassessed. Patient is alert, oriented x 3, equal unlabored respirations, skin warm/dry/pink. Vital Signs: 16:30 BP 109 / 83; Pulse 89; Resp 16 S; Temp 97.7(TE); Pulse Ox 100% on R/A; Weight 56.7 kg aa5 (R); Height 5 ft. 2 in. (R); 16:30 Body Mass Index 22.86 (56.70 kg, 157.48 cm) aa5 ED Course: 16:14 Patient arrived in ED. am2 16:16 [facility]C [facility] snw 16:16 Iraj Aranda MD is Attending Physician. snw 16:30 Arm band placed on. aa5 16:31 Triage completed. aa5 17:00 Chetna Hutchison, RN is Primary Nurse. kc6 17:22 Patient has correct armband on for positive identification. Bed in low position. Call kc6 light in reach. Side rails up X 1. 17:30 No provider procedures requiring assistance completed. Patient did not have IV access kc6 during this emergency room visit. Administered Medications: 17:21 Drug: Ketorolac IM 30 mg Route: IM; Site: right deltoid; kc6 17:30 Follow up: Response: No adverse reaction kc6 Medication: 17:30 VIS not applicable for this client. kc6 Outcome: 17:09 Discharge ordered by . snw 17:30 Discharged to home ambulatory. kc6 17:30 Condition: stable 17:30 Discharge instructions given to patient, Instructed on discharge instructions, follow up and referral plans. medication usage, Demonstrated understanding of instructions, follow-up care, medications, Prescriptions given X 1. 17:34 Patient left the ED. kc6 Signatures: Katey Olmos FNP-C PROFESSOR OF ECONOMICS-[employer] Morelia Costello RN RN [facility] Vee Lance am2 Chetna Hutchison, HORACE RN kc6
[2022-07-09] MEDS ORDERED: KETOROLAC 30 MG/ML INJ ONE (17:23)
[2022-07-09 17:57] VITALS: BP 109/83; TEMP 97.7; O2SAT 100
== END 2022-07-09 17:34 | disposition home or self-care (01) ==
LOC: ER 16:13
DX: M54.50 Low back pain, unspecified (principal); R30.0 Dysuria; F31.9 Bipolar disorder, unspecified; F17.210 Nicotine dependence, cigarettes, uncomplicated
CPT/HCPCS: 81001; 81025; 96372; 99284